=== PATIENT | male | born 1955 | race Caucasian/White ===

== ENCOUNTER 2017-11-10 10:34 | Emergency (ER) | payer BC, OTHER ==
[2017-11-10 10:50] VITALS: PULSE 80
--- NOTE | 2017-11-10 11:22 | ED ---
Skin/Abscess/FB HPI - General Source: patient, RN notes reviewed, old records reviewed Mode of arrival: ambulatory Limitations: no limitations <Deana Calhoun - Last Filed: 11/10/17 12:08> <Doug Kinney - Last Filed: 11/10/17 12:32> - General Chief complaint: Skin/Abscess/Foreign Body Stated complaint: Leg Pain Time Seen by Provider: 11/10/17 11:00 - History of Present Illness Initial comments: Patient is a 62-year-old male presents emergency Department chief complaint of swelling and erythema over the right medial thigh. Patient reports a diagnosis for one day. He is working on a deck and outside more frequently the past few days. No history of blood clots. Denies any lower external any pain or swelling. He reports his headache. No fevers or chills. Does not room getting bit by anything. (Deana Calhoun) - Related Data Previous Rx's Medication Instructions Recorded Cephalexin [Keflex] 500 mg PO Q6HR #40 cap 11/10/17 Sulfamethox-Tmp 800-160Mg [Bactrim 2 tab PO Q12HR #40 tab 11/10/17 DS 800-160 mg] Allergies Allergy/AdvReac Type Severity Reaction Status Date / Time No Known Allergies Allergy Verified 11/10/17 10:50 Review of Systems ROS Other: All systems not noted in ROS Statement are negative. <Deana Calhoun - Last Filed: 11/10/17 12:08> ROS Other: All systems not noted in ROS Statement are negative. <Doug Kinney - Last Filed: 11/10/17 12:32> ROS Statement: Those systems with pertinent positive or pertinent negative responses have been documented in the HPI. Past Medical History Past Medical History: Asthma, GERD/Reflux, Hyperlipidemia, Hypertension History of Any Multi-Drug Resistant Organisms: None Reported Additional Past Surgical History / Comment(s): mario alberto rectal abscess Past Psychological History: No Psychological Hx Reported Smoking Status: Never smoker Past Alcohol Use History: Occasional Past Drug Use History: None Reported <Deana Calhoun - Last Filed: 11/10/17 12:08> General Exam Limitations: no limitations General appearance: alert, in no apparent distress Head exam: Present: atraumatic, normocephalic, normal inspection Eye exam: Present: normal appearance, PERRL, EOMI. Absent: scleral icterus, conjunctival injection, periorbital swelling ENT exam: Present: normal exam, mucous membranes moist Neck exam: Present: normal inspection. Absent: tenderness, meningismus, lymphadenopathy Respiratory exam: Present: normal lung sounds bilaterally. Absent: respiratory distress, wheezes, rales, rhonchi, stridor Cardiovascular Exam: Present: regular rate, normal rhythm, normal heart sounds. Absent: systolic murmur, diastolic murmur, rubs, gallop, clicks GI/Abdominal exam: Present: soft, normal bowel sounds. Absent: distended, tenderness, guarding, rebound, rigid Extremities exam: Present: full ROM, normal capillary refill. Absent: normal inspection, tenderness, pedal edema, joint swelling, calf tenderness Right Hip exam: Present: normal inspection, full ROM Upper Leg exam: Present: full ROM, erythema (cellulitis measuring 12 cm by 18cm. ). Absent: normal inspection Knee exam: Present: normal inspection, full ROM Lower Leg exam: Present: normal inspection, full ROM Back exam: Present: normal inspection Neurological exam: Present: alert, oriented X3, CN II-XII intact Psychiatric exam: Present: normal affect, normal mood Skin exam: Present: warm, dry, intact, normal color. Absent: rash <Deana Calhoun - Last Filed: 11/10/17 12:08> <Doug Kinney - Last Filed: 11/10/17 12:32> - General Exam Comments Initial Comments: This is a 62-year-old male. Alert and oriented. No acute distress. (Deana Calhoun) Course <Deana Calhoun - Last Filed: 11/10/17 12:08> <Doug Kinney - Last Filed: 11/10/17 12:32> Vital Signs 11/10/17 11/10/17 10:43 12:22 Temperature 97.5 F L 98 F Pulse Rate 80 80 Respiratory 18 16 Rate Blood Pressure 164/84 154/81 O2 Sat by Pulse 97 99 Oximetry - Reevaluation(s) Reevaluation #1: 11/10/17 12:32 PA supervision I did personally do a [id number] evaluation the patient did discuss the findings with him and his . Patient does demonstrate evidence of a cellulitis to the right medial thigh. No evidence of open wound or foreign body seen at this time no lymphangitis. Ultrasound was negative for evidence of DVT. I do agree with the assessment and plan. (Doug Kinney) Medical Decision Making - Radiology Data Radiology results: report reviewed <Deana Calhoun - Last Filed: 11/10/17 12:08> <Doug Kinney - Last Filed: 11/10/17 12:32> - Medical Decision Making 62-year-old male presents emergency department today with chief complaint of right medial thigh redness. He notices for one day. He also reports that he was recently treated for. Rectal abscess a few weeks ago. At this time we did an ultrasound of his right lower extremity. Negative for DVT. Patient will be treated with Keflex and Bactrim. I discussed that if there is worsening redness or swelling to the site that he should return for possibly needing IV antibiotic. I did draw an area of redness around the site and if the redness gets worse in the next 24 hours and he will return. Patient understands treatment plan will comply. Return parameters were discussed. (Deana Calhoun) - Radiology Data Ultrasound was negative for DVT. (Deana Calhoun) Disposition Is patient prescribed a controlled substance at d/c from ED?: No When asked, does pt state using other controlled substances?: No If prescribed controlled substance>3 days was MAPS reviewed?: No If opioid is for acute pain is fill amount 7 days or less?: No If Rx opioid, was Start Talking consent form obtained?: No Time of Disposition: 12:12 <Deana Calhoun - Last Filed: 11/10/17 12:08> <Doug Kinney - Last Filed: 11/10/17 12:32> Clinical Impression: Cellulitis of right thigh Disposition: HOME SELF-CARE Condition: Good Instructions: Cellulitis (ED) Additional Instructions: Patient advised any Motrin Tylenol for pain. Patient must take the entire prescription of antibiotics. Follow up with her primary care physician in the next 1-2 days. If the area of redness or swelling worsens please return to emergency department for further evaluation possibly needing IV antibiotics. Prescriptions: Cephalexin [Keflex] 500 mg PO Q6HR #40 cap Sulfamethox-Tmp 800-160Mg [Bactrim DS 800-160 mg] 2 tab PO Q12HR #40 tab Referrals: Saeed Torres MD [Primary Care Provider] - 1-2 days
--- NOTE | 2017-11-10 11:51 | US ---
EXAMINATION TYPE: US venous doppler duplex LE RT DATE OF EXAM: 11/10/2017 11:05 AM COMPARISON: NONE CLINICAL HISTORY: Pain. SIDE PERFORMED: right TECHNIQUE: The lower extremity deep venous system is examined utilizing real time linear array sonog brenna with graded compression, doppler sonography and color-flow sonography. VESSELS IMAGED: External Iliac Vein (EIV) Common Femoral Vein Deep Femoral Vein Greater Saphenous Vein * Femoral Vein Popliteal Vein Small Saphenous Vein * Proximal Calf Veins (* superficial vessels) Right Leg: Negative for DVT IMPRESSION: Grayscale, color doppler, spectral doppler imaging performed of the deep veins of the lo wer extremities. There is normal flow, compressibility, vascular waveforms. No evidence to suggest deep venous thrombosis at or above the right knee.
[2017-11-10] MEDS ORDERED: SULFAMETH-TMP DS STARTER PACK 2 TAB BTL PO STA (12:06)
[2017-11-10] MEDS ORDERED: CEPHALEXIN 500MG STARTER PACK 4 CAP BTL PO STA (12:06)
[2017-11-10 12:22] VITALS: BP 154/81; RESP 16; TEMP 98
== END 2017-11-10 12:20 | disposition home or self-care (01) ==
LOC: EC 10:34
DX: L03.115 Cellulitis of right lower limb (principal); R51 Headache; M79.89 Other specified soft tissue disorders
CPT/HCPCS: 99284

== ENCOUNTER 2017-11-12 12:18 | Inpatient (IN) | payer BC ==
[2017-11-12] MEDS ORDERED: PIPERACILLIN-TAZOBACTAM 3.375 GM in DEXTROSE/WATER 1 50ML.BAG IVPB STA (12:52)
[2017-11-12] MEDS ORDERED: SODIUM CHLORIDE 0.9% 1,000 ML IV ONE (12:53)
--- NOTE | 2017-11-12 12:58 | ED ---
Skin/Abscess/FB HPI - General Source: patient, RN notes reviewed, old records reviewed Mode of arrival: ambulatory Limitations: no limitations <Deana Calhoun - Last Filed: 11/12/17 15:40> <Boy Miner - Last Filed: 11/16/17 14:59> - General Chief complaint: Skin/Abscess/Foreign Body Stated complaint: RT THIGH AND ANKLE CELLULITIS Time Seen by Provider: 11/12/17 12:28 - History of Present Illness Initial comments: This Patient is a pleasant 62-year-old male with chief complaint of right leg swelling and erythema over the thigh and ankle. He was seen by myself on 2 days ago and prescribed Keflex and Bactrim for cellulitis. He reports that the redness seems to continue to spread. He reports he's noticed some worsening swelling in his ankle. At that time he had an ultrasound which was completed for DVT and that was negative. Patient states that he's had no history of blood clots. He does report a recent history of perirectal abscess. He has been seen by his visiting nurse today for the last visit and she told him to come in for further evaluation. Patient has had no fevers or chills. Prior to the onset of the cellulitis he has been working outside on his deck and wonders if he could be associated with a scratch from working on his deck. (Deana Calhoun) - Related Data Home Medications Medication Instructions Recorded Confirmed Albuterol Inhaler [Ventolin Hfa 1 - 2 puff INHALATION RT-Q6H PRN 11/12/17 Inhaler] Montelukast [Singulair] 10 mg PO DAILY 11/12/17 11/12/17 Omeprazole 20 mg PO DAILY 11/12/17 11/12/17 Simvastatin [Zocor] 40 mg PO DAILY 11/12/17 11/12/17 Previous Rx's Medication Instructions Recorded Cephalexin [Keflex] 500 mg PO Q8HR #30 cap 11/16/17 Losartan Potassium 50 mg PO DAILY #0 11/16/17 Allergies Allergy/AdvReac Type Severity Reaction Status Date / Time No Known Allergies Allergy Verified 11/12/17 12:32 Review of Systems ROS Other: All systems not noted in ROS Statement are negative. <Deana Calhoun - Last Filed: 11/12/17 15:40> ROS Other: All systems not noted in ROS Statement are negative. <Boy Miner - Last Filed: 11/16/17 14:59> ROS Statement: Those systems with pertinent positive or pertinent negative responses have been documented in the HPI. Past Medical History Past Medical History: Asthma, GERD/Reflux, Hyperlipidemia, Hypertension History of Any Multi-Drug Resistant Organisms: None Reported Additional Past Surgical History / Comment(s): mario alberto rectal abscess Past Psychological History: No Psychological Hx Reported Smoking Status: Never smoker Past Alcohol Use History: Occasional Past Drug Use History: None Reported <LjDeana - Last Filed: 11/12/17 15:40> General Exam Limitations: no limitations General appearance: alert, in no apparent distress Head exam: Present: atraumatic, normocephalic, normal inspection Eye exam: Present: normal appearance, PERRL, EOMI. Absent: scleral icterus, conjunctival injection, periorbital swelling ENT exam: Present: normal exam, mucous membranes moist Neck exam: Present: normal inspection. Absent: tenderness, meningismus, lymphadenopathy Respiratory exam: Present: normal lung sounds bilaterally. Absent: respiratory distress, wheezes, rales, rhonchi, stridor Cardiovascular Exam: Present: regular rate, normal rhythm, normal heart sounds. Absent: systolic murmur, diastolic murmur, rubs, gallop, clicks GI/Abdominal exam: Present: soft, normal bowel sounds. Absent: distended, tenderness, guarding, rebound, rigid Extremities exam: Present: full ROM, normal capillary refill. Absent: normal inspection, tenderness, pedal edema, joint swelling, calf tenderness Right Upper Leg exam: Present: full ROM, erythema (She has very large erythema over the right medial thigh.). Absent: normal inspection Knee exam: Present: normal inspection, full ROM Lower Leg exam: Present: normal inspection, full ROM Ankle exam: Present: full ROM, swelling, erythema (over medial malleolus). Absent: normal inspection, tenderness Foot/Toe exam: Present: normal inspection, full ROM Neurovascular tendon exam: Present: no vascular compromise Gait: observed and normal Back exam: Present: normal inspection Neurological exam: Present: alert, oriented X3, CN II-XII intact Psychiatric exam: Present: normal affect, normal mood Skin exam: Present: warm, dry, intact, normal color. Absent: rash <Deana Calhoun - Last Filed: 11/12/17 15:40> <Boy Miner - Last Filed: 11/16/17 14:59> - General Exam Comments Initial Comments: This Patient is a well-appearing 62-year-old male. Alert and oriented. No acute distress. (Deana Calhoun) Vital Signs 11/12/17 11/12/17 11/12/17 12:23 14:36 17:03 Temperature 97.4 F L 97.7 F Pulse Rate 79 69 74 Respiratory 18 18 18 Rate Blood Pressure 177/78 168/77 152/81 O2 Sat by Pulse 97 97 98 Oximetry Medical Decision Making - Lab Data Result diagrams: 11/12/17 13:15 11/12/17 13:15 - Radiology Data Radiology results: report reviewed <Deana Calhoun - Last Filed: 11/12/17 15:40> - Lab Data Result diagrams: 11/13/17 05:31 11/16/17 08:06 <Boy Miner - Last Filed: 11/16/17 14:59> - Medical Decision Making This Patient is a 62-year-old male presents emergency department today with increasing area of redness over his right medial thigh. He was started on Keflex and Bactrim 2 days ago. He reports no fevers or any significant pain within the leg. He also reports that he's had some swelling and ecchymosis in the right ankle. At this time we completed an ultrasound which was negative for DVT. There does appear to be a small phlegmonous area within the leg. X- rays of the leg and ankle were obtained and show no evidence of free air. Lab work was obtained. White blood cell count was within normal limits. He does have an elevated BUN/creatinine. GFR 29. We have no previous kidney functions to compare from. I examined the Patient with Dr. Coreas. Recommended CT of the leg. We'll do CT of the leg without contrast. I did start the Patient on Zosyn and pharmacy to dose vancomycin. I will admit the Patient for failed outpatient treatment, and right thigh and ankle cellulitis. Blood cultures were obtained. CT is negative for any deep abscess or subcutaneous gas. (Deana Calhoun) Resident/PA attestation: I, Dr. Boy Miner, personally saw and examined the patient. I have reviewed and agree with the resident/PA findings, including all diagnostic interpretations and treatment plans as written unless otherwise stated. I was present for the falk portions of any procedures performed and inclusive time noted for any critical care statement. (Boy Miner) - Lab Data Lab Results 11/12/17 11/12/17 11/12/17 Range/Units 13:15 13:15 13:15 WBC 9.5 (3.8-10.6) k/uL RBC 4.28 L (4.30-5.90) m/uL Hgb 14.1 (13.0-17.5) gm/dL Hct 41.0 (39.0-53.0) % MCV 95.7 (80.0-100.0) fL MCH 32.8 (25.0-35.0) pg MCHC 34.3 (31.0-37.0) g/dL RDW 12.7 (11.5-15.5) % Plt Count 172 (150-450) k/uL Neutrophils % 76 % Lymphocytes % 10 % Monocytes % 7 % Eosinophils % 4 % Basophils % 0 % Neutrophils # 7.3 (1.3-7.7) k/uL Lymphocytes # 1.0 (1.0-4.8) k/uL Monocytes # 0.6 (0-1.0) k/uL Eosinophils # 0.4 (0-0.7) k/uL Basophils # 0.0 (0-0.2) k/uL ESR 2 (0-15) mm/hr Sodium 141 (137-145) mmol/L Potassium 4.7 (3.5-5.1) mmol/L Chloride 105 (98-107) mmol/L Carbon Dioxide 25 (22-30) mmol/L Anion Gap 11 mmol/L BUN 24 H (9-20) mg/dL Creatinine 2.30 H (0.66-1.25) mg/dL Est GFR (CKD-EPI)AfAm 34 (>60 ml/min/1.73 sqM) Est GFR (CKD-EPI)NonAf 29 (>60 ml/min/1.73 sqM) Glucose 112 H (74-99) mg/dL Plasma Lactic Acid Kenny 1.1 (0.7-2.0) mmol/L Calcium 8.8 (8.4-10.2) mg/dL Total Bilirubin 1.0 (0.2-1.3) mg/dL AST 41 (17-59) U/L ALT 58 (21-72) U/L Alkaline Phosphatase 56 (38-126) U/L C-Reactive Protein <5.0 (<10.0) mg/L Total Protein 6.6 (6.3-8.2) g/dL Albumin 4.3 (3.5-5.0) g/dL - Radiology Data X-ray: Prominent soft tissue swelling of the distal leg and ankle to a lesser extent of the medial thigh. Moderate severe Achilles tendinopathy. Correlate for any localizing symptoms to the Achilles tendon. If indicated MRI or ultrasound may be performed. Us: No evidence of DVT within the right lower extremity from the groin to the knee. Edematous taken subcutaneous medial right thigh with the same redness. Correlate for cellulitis. Heterogeneous 2.2 x 1.70 focal lesion within the could represent a local phlegmonous change. A 1.5 cm WELL-defined cystic area behind the knee which could represent small cyst though no discrete communication with the underlying knee joint is seen. Short interval follow up recommended for both findigns. CT: Subcutaneous edema greater distally along the leg correlate for cellulitis. No soft tissue gas or edema along the muscular fascial planes to suggest a deeper aggressive soft tissue infection. 2.6 x 1.2 cm irregular density in the medial thighs subcutaneous fat suggestive inflammation or possible phlegmon. No abscess. Couple punctate 2 mm densities anteromedial mid leg which could represent tiny phleboliths or retained foreign body material. No acute osseous abnormality seen. Mildly enlarged right inguinal lymph node at 1.6 cm likely reactive. (Deana Calhoun) Disposition Is patient prescribed a controlled substance at d/c from ED?: No When asked, does pt state using other controlled substances?: No If prescribed controlled substance>3 days was MAPS reviewed?: No If opioid is for acute pain is fill amount 7 days or less?: No If Rx opioid, was Start Talking consent form obtained?: No Time of Disposition: 15:42 <Deana Calhoun - Last Filed: 11/12/17 15:40> <Boy Miner - Last Filed: 11/16/17 14:59> Clinical Impression: Cellulitis of right thigh, Failure of outpatient treatment, JAYNA (acute kidney injury), Cellulitis of right ankle Disposition: ADMITTED IP TO THIS HOSP Condition: Good
[2017-11-12] MEDS: SODIUM CHLORIDE 0.9% 1,000 ML IV SCH (13:14)
[2017-11-12 13:42] LABS: Basophils % (A) 0 %; Eosinophils # (A) 0.4 k/uL (0-0.7); Eosinophils % (A) 4 %; HGB 14.1 gm/dL (13.0-17.5); Lymphocytes % (A) 10 %; MCH 32.8 pg (25.0-35.0); MCHC 34.3 g/dL (31.0-37.0); MCV 95.7 fL (80.0-100.0); Mean Platelet Volume 7.2; Monocytes # (A) 0.6 k/uL (0-1.0); Monocytes % (A) 7 %; Neutrophils # (A) 7.3 k/uL (1.3-7.7); Neutrophils % (A) 76 %; Platelet Count 172 k/uL (150-450); RBC 4.28 m/uL (4.30-5.90); RDW 12.7 % (11.5-15.5); WBC 9.5 k/uL (3.8-10.6)
--- NOTE | 2017-11-12 13:42 | XR ---
EXAMINATION TYPE: XR femur 2 views RT, XR ankle complete 3 views RT DATE OF EXAM: 11/12/2017 COMPARISON: NONE HISTORY: 62-year-old male ankle and thigh swelling and erythema for 2 days FINDINGS: Femur: Mild degenerative change of the right hip. No effacement of the intramuscular fat planes within the t high. No soft tissue gas seen. Mild reticulations within the medial subcutaneous fat. No acute fractu re. No periostitis or osteolysis. No knee joint effusion. Tibia/fibula: Prominent reticulations throughout the subcutaneous adipose tissues. There may be severe thickening o f the Achilles tendon at the 1.9 cm AP. Vascular calcifications suggest underlying diabetes and chron ic kidney disease. Small plantar calcaneal spur. Ankle mortise is congruent. No acute fracture, sublu xation, or dislocation. No periostitis or osteolysis. Talar dome is intact. IMPRESSION: 1. Prominent soft tissue swelling about the distal leg and ankle and to a lesser extent along the med ial thigh. No acute osseous abnormality seen. 2. Possible moderate to severe Achilles tendinopathy. Correlate for any localizing symptoms to the Ac hilles tendon. If indicated, ultrasound or MRI can be performed.
[2017-11-12 13:49] LABS: ALT 58 U/L (21-72); AST 41 U/L (17-59); Albumin 4.3 g/dL (3.5-5.0); Alkaline Phosphatase 56 U/L (38-126); Anion Gap 11 mmol/L; Blood Urea Nitrogen 24 mg/dL (9-20); Calcium 8.8 mg/dL (8.4-10.2); Carbon Dioxide 25 mmol/L (22-30); Chloride 105 mmol/L (98-107); Glucose 112 mg/dL (74-99); Potassium 4.7 mmol/L (3.5-5.1); Sodium 141 mmol/L (137-145); Total Protein 6.6 g/dL (6.3-8.2)
[2017-11-12 14:03] LABS: C Reactive Protein <5.0 mg/L (<10.0)
--- NOTE | 2017-11-12 14:13 | US ---
EXAMINATION TYPE: US venous doppler duplex LE RT DATE OF EXAM: 11/12/2017 1:57 PM COMPARISON: US 11/10/2017 CLINICAL HISTORY: 62-year-old male was diagnosed with cellulitis on 11/10/2017, worsening symptoms- red ness and swelling right leg. SIDE PERFORMED: Right TECHNIQUE: The lower extremity deep venous system is examined utilizing real time linear array sonog brenna with graded compression, doppler sonography and color-flow sonography. FINDINGS: VESSELS IMAGED: External Iliac Vein (EIV) Common Femoral Vein Deep Femoral Vein Greater Saphenous Vein * Femoral Vein Popliteal Vein Small Saphenous Vein * (* superficial vessels) Right Leg: Appears negative for DVT. Within the right popliteal fossa, there is a cystic area visualized measuring 1.5 x 1.2 x 1.3 cm. No clear extension into the underlying knee joint. Short interval follow-up recommended. Within the right medial thigh, at the area of the patient's redness, there is a heterogeneous hypoec hoic area visualized centered in the thickened and edematous subcutaneous adipose tissues measuring 2 .2 x 0.6 x 0.7 cm . IMPRESSION: 1. No evidence for DVT within the right lower extremity imaged from the groin to the knee. 2. Edematous and thickened subcutaneous tissues medial right thigh at the site of redness. Correlate for cellulitis. There is a heterogeneous 2.2 x 0.7 cm focal lesion within that could represent focal phlegmonous change. 3. A 1.5 cm well-defined cystic area behind the knee could represent a small 's cyst though no d iscrete communication with the underlying knee joint is seen. 4. Short interval follow-up ultrasound is recommended for both of these findings.
[2017-11-12] MEDS ORDERED: VANCOMYCIN IV PER PHARMACY 1 EACH MISC MISCELLANE PRN (14:30)
[2017-11-12 14:36] LABS: Erythrocyte Sedimentation Rate 2 mm/hr (0-15)
[2017-11-12] MEDS ORDERED: VANCOMYCIN 2,000 MG in SODIUM CHLORIDE 0.9% 500 ML IVPB ONE (14:45)
--- NOTE | 2017-11-12 15:35 | CT ---
EXAMINATION TYPE: CT lower extremity RT wo con DATE OF EXAM: 11/12/2017 COMPARISON: Correlation ultrasound and radiographs 11/12/2017 HISTORY: 62-year-old male with right medial thigh and ankle pain, redness and swelling. TECHNIQUE: Contiguous axial scanning of the right lower extremity without IV contrast. Coronal and sa gittal reconstructions performed. 3-D reconstructions generated on a dedicated independent workstatio n. CT DLP: 1794.8 mGycm Automated exposure control for dose reduction was used. FINDINGS: There is fatty atrophy of the gluteus minimus muscle belly that could reflect chronic tear. Prominent right inguinal lymph nodes measuring 1.6 cm short axis could be reactive. There is no soft tissue air. No edema tracking along the deeper fascial planes. Diffuse subcutaneous fat reticulation throughout the thigh, most extensively medially. Similar conflu ent edema is present along the superficial fascia anteromedial distal thigh. Within the medial thigh subcutaneous adipose tissues, there is a 2.6 x 1.2 cm irregular density corre sponding to the ultrasound findings. More extensive subcutaneous fat reticulation around the leg especially distally toward the ankle. No abnormal fluid collection. Along the anteromedial mid leg, there are couple punctate 2 mm densities that could represent phlebol iths or tiny foreign body material, refer to axial image 256 and coronal image 35. Prostatic calcifications are present throughout. Scattered areas of muscle atrophy are noted. No knee joint effusion. No acute fracture or dislocation. There is moderate degenerative change at th e hip. IMPRESSION: 1. SUBCUTANEOUS EDEMA GREATER DISTALLY ALONG THE LEG. CORRELATE FOR CELLULITIS. THERE IS NO SOFT TISS UE GAS OR EDEMA ALONG THE MUSCULAR FASCIAL PLANES TO SUGGEST A DEEPER, AGGRESSIVE SOFT TISSUE INFECTI ON. 2. A 2.6 X 1.2 CM IRREGULAR DENSITY IN THE MEDIAL THIGH SUBCUTANEOUS FAT SUGGESTS NONSPECIFIC INFLAMM ATION, POSSIBLE FOCAL PHLEGMON. NO ABSCESS. 3. A COUPLE PUNCTATE 2 MM DENSITIES ANTEROMEDIAL MID LEG COULD REPRESENT TINY PHLEBOLITHS OR RETAINED FOREIGN BODY MATERIAL (axial image 256 and coronal image 35). 4. NO ACUTE OSSEOUS ABNORMALITY SEEN. 5. MILDLY ENLARGED RIGHT INGUINAL LYMPH NODE AT 1.6 CM LIKELY REACTIVE.
[2017-11-12] MEDS ORDERED: IBUPROFEN 400 MG TAB PO PRN (15:46)
[2017-11-12] MEDS ORDERED: ONDANSETRON 4 MG/2 ML VIAL IVP PRN (15:46)
[2017-11-12] MEDS ORDERED: oxyCODONE-APAP 5-325MG 1 EACH TAB PO PRN (15:46)
[2017-11-12] MEDS ORDERED: LOPERAMIDE 2 MG CAP PO PRN (15:46)
[2017-11-12] MEDS ORDERED: ACETAMINOPHEN TAB 325 MG TAB PO PRN (15:46)
[2017-11-12] MEDS ORDERED: BISACODYL 5 MG TABLET.DR PO PRN (15:46)
[2017-11-12] MEDS ORDERED: NALOXONE 0.4 MG/ML 1 ML VIAL IV PRN (15:46)
[2017-11-12] MEDS ORDERED: KETOROLAC 30 MG/ML 1 ML VIAL IVP PRN (15:46)
[2017-11-13] MEDS: SODIUM CHLORIDE 0.9% 1,000 ML IV SCH ×3 (00:27→19:49)
[2017-11-13 06:01] LABS: Basophils # (A) 0.1 k/uL (0-0.2); Basophils % (A) 1 %; Eosinophils # (A) 0.5 k/uL (0-0.7); Eosinophils % (A) 7 %; HCT 40.6 % (39.0-53.0); HGB 13.5 gm/dL (13.0-17.5); Lymphocytes # (A) 1.2 k/uL (1.0-4.8); Lymphocytes % (A) 16 %; MCH 32.5 pg (25.0-35.0); MCHC 33.1 g/dL (31.0-37.0); MCV 97.9 fL (80.0-100.0); Mean Platelet Volume 7.2; Monocytes # (A) 0.6 k/uL (0-1.0); Monocytes % (A) 8 %; Neutrophils # (A) 5.1 k/uL (1.3-7.7); Neutrophils % (A) 66 %; Platelet Count 168 k/uL (150-450); RBC 4.15 m/uL (4.30-5.90); RDW 12.8 % (11.5-15.5); WBC 7.7 k/uL (3.8-10.6)
[2017-11-13 06:10] LABS: Calcium 8.4 mg/dL (8.4-10.2); Potassium 5.6 mmol/L (3.5-5.1)
[2017-11-13] MEDS: VANCOMYCIN 1,750 MG in SODIUM CHLORIDE 0.9% 500 ML IVPB SCH (09:00)
[2017-11-13] MEDS ORDERED: VANCOMYCIN 1,750 MG in SODIUM CHLORIDE 0.9% 250 ML IVPB SCH (09:00)
[2017-11-13] MEDS ORDERED: PANTOPRAZOLE 40 MG/10 ML VIAL IV SCH (09:00)
[2017-11-13] MEDS ORDERED: PANTOPRAZOLE 40 MG TABLET PO SCH (13:00)
[2017-11-13] MEDS: LOSARTAN 50 MG TAB PO SCH (15:07)
[2017-11-13] MEDS: ATORVASTATIN 20 MG TAB PO SCH (15:07)
[2017-11-13] MEDS: PIPERACILLIN-TAZOBACTAM 3.375 GM in DEXTROSE/WATER 1 50ML.BAG IVPB SCH ×2 (15:08→23:16)
--- NOTE | 2017-11-13 15:57 | P.HPIM ---
History of Present Illness H&P Date: 11/13/17 This is a 62 years old male patient of Dr. Torres with past medical history of asthma, hyperlipidemia, hypertension, recent perirectal abscess treated by Dr. Wilhelm currently getting visiting nurses at home with last packing of the rectum done last Wednesday with no further plans of packing due to good recovery. Patient developed right lower extremity swelling and redness 2 days ago and was seen in the ER where he was discharged with Keflex and Bactrim. Since the swelling around the thigh region continued to worsen despite the antibiotic patient decided to come to the ER on suggestion of the visiting nurses. Labs done in the ER suggestive of WBC 9.5, hemoglobin 14.1, creatinine 2.3, BUN 24, glucose 112 lactic acid 1.1 normal LFTs, normal C- reactive protein. Ultrasound lower extremity was negative for DVT CT lower extremity gratis distally along the leg concerning for cellulitis but no soft tissue gas or edema was seen to suggest deeper infection. Patient was found to have a 2.6 and 1.1 is regular density in the medial thigh subcutaneous fat which could suggest a possible focal phlegmon though negative for any abscess patient also has a couple punctate 2 mm densities anterior medial mid leg which could represent tiny phlebolith or retained foreign body material mildly enlarged lymph node was also seen likely reactive. Infectious disease consult placed patient will be continued on vancomycin and Zosyn as improvement in swelling noted. We will hold on surgery consult as patient does not have any acute abscesses that that can be drained Review of Systems Constitutional: Denies chills, Denies fever, Denies lethargy, Denies malaise, Denies poor appetite, Denies weakness, Denies weight loss Eyes: denies decreased vision, denies diplopia, denies discharge, denies pain Ears: deny: decreased hearing Ears, nose, mouth and throat: Denies dental pain, Denies headache, Denies nasal discharge, Denies nose pain Cardiovascular: Denies chest pain, Denies decreased exercise tolerance, Denies edema, Denies high blood pressure, Denies irregular heart beat, Denies palpitations, Denies paroxysmal nocturnal dyspnea, Denies rapid heart beat, Denies shortness of breath Respiratory: Denies congestion, Denies cough, Denies cough with sputum, Denies dyspnea, Denies home oxygen, Denies wheezing Gastrointestinal: Denies abdominal pain, Denies change in bowel habits, Denies coffee ground emesis, Denies early satiety, Denies excessive gas, Denies heartburn, Denies hematemesis, Denies hematochezia, Denies loss of appetite, Denies nausea, Denies vomiting Genitourinary: Denies dysuria, Denies flank pain, Denies kidney stones, Denies menorrhagia, Denies urgency, Denies urinary frequency Musculoskeletal: Denies gait dysfunction, Denies limitation of motion, Denies morning stiffness, Denies muscle cramps Integumentary: Endorses rash, Denies wounds, Denies brittle nails, Denies change in hair/nails, Denies darkening of skin Neurological: Denies balance difficulties, Denies change in speech, Denies double vision, Denies gait dysfunction, Denies loss of vision, Denies motor disturbance, Denies numbness, Denies paralysis, Denies paresthesias, Denies seizures Psychiatric: Denies anxiety, Denies depression Endocrine: Denies excessive sweating, Denies excessive thirst, Denies high blood sugars, Denies palpitations Hematologic/Lymphatic: Denies easy bruising, Denies lymphadenopathy Past Medical History Past Medical History: Asthma, GERD/Reflux, Hyperlipidemia, Hypertension History of Any Multi-Drug Resistant Organisms: None Reported Additional Past Surgical History / Comment(s): mario alberto rectal abscess sx Past Psychological History: No Psychological Hx Reported Smoking Status: Never smoker Past Alcohol Use History: Occasional Past Drug Use History: None Reported Medications and Allergies Home Medications Medication Instructions Recorded Confirmed Type Cephalexin [Keflex] 500 mg PO Q6HR #40 cap 11/10/17 11/12/17 Rx Sulfamethox-Tmp 800-160Mg [Bactrim 2 tab PO Q12HR #40 tab 11/10/17 11/12/17 Rx DS 800-160 mg] Albuterol Inhaler [Ventolin Hfa 1 - 2 puff INHALATION RT-Q6H PRN 11/12/17 History Inhaler] Losartan Potassium 100 mg PO DAILY 11/12/17 11/12/17 History Montelukast [Singulair] 10 mg PO DAILY 11/12/17 11/12/17 History Omeprazole 20 mg PO DAILY 11/12/17 11/12/17 History Simvastatin [Zocor] 40 mg PO DAILY 11/12/17 11/12/17 History Allergies Allergy/AdvReac Type Severity Reaction Status Date / Time No Known Allergies Allergy Verified 11/12/17 12:32 Physical Exam Vitals: Vital Signs Temp Pulse Pulse Resp BP BP Pulse Ox 11/13/17 15:00 97.7 F 82 16 155/75 96 11/13/17 06:10 96.8 F L 79 16 141/85 96 11/12/17 22:50 97.6 F 75 16 142/80 96 11/12/17 17:03 97.7 F 74 18 152/81 98 Intake and Output 11/13/17 11/13/17 11/13/17 06:59 14:59 22:59 Intake Total 850 Balance 850 Intake: Intake, IV Titration 850 Amount Piperacillin-Tazobactam 3 50 .375 gm In Dextrose/Water 1 50ml.bag @ 12.5 mls/hr IVPB Q8HR [facility] Rx#: [id number] Sodium Chloride 0.9% 1, 800 000 ml @ 100 mls/hr IV . Q10H [facility] Rx#:[id number] Other: # Voids 1 - Constitutional General appearance: cooperative, no acute distress, obese - EENT Eyes: anicteric sclerae, PERRLA, normal appearance ENT: hearing grossly normal - Neck Neck: no lymphadenopathy, normal ROM, no other, no rigidity, no stridor, no thyromegaly - Respiratory Respiratory: bilateral: CTA, negative: diminished, dullness, rales, rhonchi - Cardiovascular Rhythm: regular Heart sounds: normal: S1, S2 Abnormal Heart Sounds: no systolic murmur, no diastolic murmur, no rub, no S3 Gallop, no S4 Gallop, no click, no other - Gastrointestinal General gastrointestinal: normal bowel sounds, soft - Integumentary Integumentary: Circumferential inflammation with no overlying warmth seen around the ankle with 1+ lower extremity edema. Also prominent skin lesion seen on the medial side of the thigh with 1 cm ulcer nondraining. - Neurologic Neurologic: CNII-XII intact - Musculoskeletal Musculoskeletal: gait normal, strength equal bilaterally - Psychiatric Psychiatric: A&O x's 3, appropriate affect Results CBC & Chem 7: 11/13/17 05:31 11/13/17 05:31 Labs: Abnormal Lab Results - Last 24 Hours (Table) 11/13/17 11/13/17 Range/Units 05:31 05:31 RBC 4.15 L (4.30-5.90) m/uL Potassium 5.6 H (3.5-5.1) mmol/L Creatinine 1.90 H (0.66-1.25) mg/dL Microbiology - Last 24 Hours (Table) 11/12/17 13:15 Blood Culture - Preliminary Blood No Growth after 24 hours 11/12/17 17:50 Gram Stain - Preliminary Leg - Right Wound Culture - Preliminary 11/12/17 17:50 Anaerobic Culture - Preliminary Leg - Right Thrombosis Risk Factor Assmnt - DVT/VTE Prophylaxis DVT/VTE Prophylaxis: Pharmacologic Prophylaxis ordered - Choose All That Apply Each Risk Factor Represents 2 Points: Age 61-74 years Thrombosis Risk Factor Assessment Total Risk Factor Score: 2 Thrombosis Risk Factor Assessment Level: Low Risk Assessment and Plan Plan: #1 acute cellulitis with lymphangitis failed outpatient treatment. CT leg suggestive of cellulitis ruled out necrotizing fasciitis. Continue with vancomycin pharmacy to dose with Zosyn. Infectious disease consulted for further recommendation as outpatient on discharge. Negative for DVT on the lower extremity ultrasound #2 hyperlipidemia continue atorvastatin 20 mg patient on simvastatin 40 mg daily #3 asthma continue Singulair 10 mg daily #4 acute kidney injury likely secondary to acute tubular necrosis from Bactrim. Creatinine improved since yesterday continue to monitor for continue IV fluids at 100 mL/h #5 GI prophylaxis with 20 mg of omeprazole #6 DVT prophylaxis with heparin every 12 #7 CODE STATUS full code
[2017-11-13] MEDS ORDERED: MONTELUKAST 10 MG TAB PO STA (19:47)
--- NOTE | 2017-11-13 20:18 | P.GSCN ---
History of Present Illness Consult date: 11/13/17 History of present illness: 62yo M presents with swelling and redness of his right medial thigh. He states that over the past month he has had recurrent abscess formation. He was treated recently for a perirectal abscess with an incision and drainage and did need some outpatient antibiotics. He was evaluated by a wound care nurse at home for this issue. Over the past few days, he noticed swelling of his inner right thigh. This began to grow red and was warm to the touch. He tried outpatient antibiotics but this area continued to worsen. This is why he presented to the hospital. ER workup did include US and CT of his RLE. Ultrasound lower extremity was negative for DVT. CT lower extremity was concerning for cellulitis and possible phlegmon, but no anscess formation. ID is following with antibiotic recommendations. The patient denied any febrile episodes, chest pain or SOB. Review of Systems All systems: negative Past Medical History Past Medical History: Asthma, GERD/Reflux, Hyperlipidemia, Hypertension History of Any Multi-Drug Resistant Organisms: None Reported Additional Past Surgical History / Comment(s): mario alberto rectal abscess sx Past Psychological History: No Psychological Hx Reported Smoking Status: Never smoker Past Alcohol Use History: Occasional Past Drug Use History: None Reported Medications and Allergies Home Medications Medication Instructions Recorded Confirmed Type Cephalexin [Keflex] 500 mg PO Q6HR #40 cap 11/10/17 11/12/17 Rx Sulfamethox-Tmp 800-160Mg [Bactrim 2 tab PO Q12HR #40 tab 11/10/17 11/12/17 Rx DS 800-160 mg] Albuterol Inhaler [Ventolin Hfa 1 - 2 puff INHALATION RT-Q6H PRN 11/12/17 History Inhaler] Losartan Potassium 100 mg PO DAILY 11/12/17 11/12/17 History Montelukast [Singulair] 10 mg PO DAILY 11/12/17 11/12/17 History Omeprazole 20 mg PO DAILY 11/12/17 11/12/17 History Simvastatin [Zocor] 40 mg PO DAILY 11/12/17 11/12/17 History Allergies Allergy/AdvReac Type Severity Reaction Status Date / Time No Known Allergies Allergy Verified 11/12/17 12:32 Surgical - Exam Osteopathic Statement: *. No significant issues noted on an osteopathic structural exam other than those noted in the History and Physical/Consult. Vital Signs Temp Pulse Resp BP Pulse Ox 97.4 F L 79 18 177/78 97 11/12/17 12:23 11/12/17 12:23 11/12/17 12:23 11/12/17 12:23 11/12/17 12:23 - General well nourished, no distress - Eyes normal ocular movement - ENT normal mucosa, no hearing loss - Respiratory normal respiratory effort - Abdomen soft, nontender, nondistended, no rebound, no guarding - Integumentary right medial thigh with erythema, positive blanching of the skin and some palpable induration, no obvious fluctuant area - Neurologic normal coordination - Psychiatric oriented to time, oriented to person, oriented to place, speech is normal Results - Labs 11/13/17 05:31 11/13/17 05:31 Abnormal Lab Results - Last 24 Hours (Table) 11/13/17 11/13/17 Range/Units 05:31 05:31 RBC 4.15 L (4.30-5.90) m/uL Potassium 5.6 H (3.5-5.1) mmol/L Creatinine 1.90 H (0.66-1.25) mg/dL Microbiology - Last 24 Hours (Table) 11/12/17 13:15 Blood Culture - Preliminary Blood No Growth after 24 hours 11/12/17 17:50 Gram Stain - Preliminary Leg - Right Wound Culture - Preliminary 11/12/17 17:50 Anaerobic Culture - Preliminary Leg - Right Diabetes panel 11/13/17 Range/Units 05:31 Sodium 144 (137-145) mmol/L Potassium 5.6 H (3.5-5.1) mmol/L Chloride 106 (98-107) mmol/L Carbon Dioxide 28 (22-30) mmol/L BUN 20 (9-20) mg/dL Creatinine 1.90 H (0.66-1.25) mg/dL Glucose 86 (74-99) mg/dL Calcium 8.4 (8.4-10.2) mg/dL Calcium panel 11/13/17 Range/Units 05:31 Calcium 8.4 (8.4-10.2) mg/dL Pituitary panel 11/13/17 Range/Units 05:31 Sodium 144 (137-145) mmol/L Potassium 5.6 H (3.5-5.1) mmol/L Chloride 106 (98-107) mmol/L Carbon Dioxide 28 (22-30) mmol/L BUN 20 (9-20) mg/dL Creatinine 1.90 H (0.66-1.25) mg/dL Glucose 86 (74-99) mg/dL Calcium 8.4 (8.4-10.2) mg/dL Adrenal panel 11/13/17 Range/Units 05:31 Sodium 144 (137-145) mmol/L Potassium 5.6 H (3.5-5.1) mmol/L Chloride 106 (98-107) mmol/L Carbon Dioxide 28 (22-30) mmol/L BUN 20 (9-20) mg/dL Creatinine 1.90 H (0.66-1.25) mg/dL Glucose 86 (74-99) mg/dL Calcium 8.4 (8.4-10.2) mg/dL - Imaging Additional studies: CT of the RLE was reviewed, possible phlegmon formation with no obvious abscess noted Assessment and Plan (1) Cellulitis of right thigh Narrative/Plan: - Continue antibiotics per ID recommendations - Currently there is no obvious fluctuant area and no CT evidence of abscess, I will continue to monitor his progress and if any fluctuant area becomes noticeable, I will do an incision and drainage of the site Thank you for this consultation, I look forward in providing in this patient's care Current Visit: Yes Status: Acute Code(s): L03.115 - CELLULITIS OF RIGHT LOWER LIMB SNOMED Code(s): 69528446
[2017-11-13] MEDS: HEPARIN SODIUM,PORCINE 5,000 UNIT/ML 1 ML VIAL SQ SCH (21:16)
--- NOTE | 2017-11-14 04:37 | CONS ---
CONSULTATION DATE OF SERVICE: 11/13/2017. REASON FOR CONSULTATION: Right mid thigh and leg cellulitis, possible abscess. HISTORY OF PRESENT ILLNESS: The patient is a 62-year-old male who recently did have a perirectal abscess requiring drainage followed by local care. The patient says that as that area has healed up, he subsequently started noticed having pain, swelling, redness to the right medial thigh area for which the patient that has been going on for about a week, has been seen in the outpatient setting and has been treated with antibiotic. However, the patient did not have any improvement. The area and the thigh became more swollen and red. Pain is of a dull, aching pain, 3 to 4/10, and no radiation and also had some swelling and redness to the right medial leg area. The patient did have some chills but denies any high-grade fever. With these symptoms, patient presented to the [facility] ER. Patient on arrival to the ER the patient has been afebrile and his white count was normal. The patient did have a lower extremity Doppler that was negative for DVT. A CT has been suggestive of soft tissue swelling but no formation noted for abscess. The patient has been treated with vancomycin and Zosyn. Infectious Disease was consulted for further recommendation regarding antibiotic therapy. REVIEW OF SYSTEMS: CONSTITUTIONAL: Positive for weakness and chills. Eyes: No complaint. ENT no complaint. Respiratory no complaint. Cardiovascular no complaint. Genitourinary no complaint. Gastrointestinal: No complaint. Endocrine: No complaint. Musculoskeletal as per HPI. Integumentary as per HPI. Psychological no complaint. Endocrine no complaint. Neurologic no complaint. PAST MEDICAL HISTORY: Significant for asthma and esophageal reflux disease, hypertension, hyperlipidemia, and perirectal abscess. PAST SURGICAL HISTORY: Drainage of the perirectal abscess. SOCIAL HISTORY: Denies smoking. Occasionally drinks. No drug use. FAMILY HISTORY: No pertinent findings noticed. ALLERGIES: No known drug allergies. MEDICATIONS: Include the patient is currently on Tylenol, Lipitor, Dulcolax, heparin, Motrin, Imodium, Cozaar, Singulair, Narcan, Zofran, Percocet, Protonix, Zosyn and vancomycin pharmacy to dose. EXAMINATION: Blood pressure is 155/75 with a pulse of 82, temperature 98.7. He is 93% on room air. General description is a middle-aged male lying in bed in no distress. No tachypnea or accessory muscles of respiration use. HEENT: Shows no pallor or scleral icterus. Oral mucosa membranes are dry. No significant erythema or thrush. Neck trachea central. No thyromegaly. Lungs unlabored breathing. Clear to auscultation anteriorly. No wheeze or crackles. Heart S1, S2. Regular rate and rhythm. ABDOMEN: Soft. No tenderness. No guarding or rigidity. Extremities: No edema of the feet. Examination of right mid thigh there is a slight area of swelling, redness, minimally indurated, on the right lower leg area. No open area. No drainage. Neurological: Patient awake, alert, oriented x3. Mood and affect normal. LABS: Hemoglobin of 13.5, white count 7.7 with a BUN of 20, creatinine 1.90. Electrolytes have been normal. DIAGNOSTIC IMPRESSION AND PLAN: Patient with right medial thigh cellulitis, consider possible abscess, also with cellulitis of the right leg area in a patient who has been recently treated for a perirectal abscess. Concern for possible gram-positive or gram-negative infection not entirely excluded. PLAN: 1. We will recommend general surgery consultation for possibility of drainage of the abscess and cultures that should guide further antibiotic therapy. 2. Vancomycin pharmacy to dose, watching his kidney function closely provide adequate coverage. 3. Depending upon his clinical response as well as cultures to further adjust medication if needed. Thank you for this consultation. Will follow this patient along with you. MMODL / IJN: [id number] /
[2017-11-14] MEDS: SODIUM CHLORIDE 0.9% 1,000 ML IV SCH ×2 (06:06→16:36)
--- NOTE | 2017-11-14 08:43 | P.PN ---
Subjective Progress Note Date: 11/14/17 Patient seen and examined at bedside. No acute events overnight. States pain is improving in his right lower extremity. Denies any drainage from his right lower extremity. Objective - Vital Signs Vital signs: Vital Signs Temp 98.6 F 11/14/17 06:00 Pulse 72 11/14/17 06:00 Resp 16 11/14/17 06:00 BP 161/79 11/14/17 06:00 Pulse Ox 97 11/14/17 06:00 Intake & Output 11/13/17 11/14/17 11/14/17 18:59 06:59 18:59 Intake Total 850 Output Total 2 Balance 850 -2 Intake: Intake, IV Titration 850 Amount Piperacillin-Tazobactam 3 50 .375 gm In Dextrose/Water 1 50ml.bag @ 12.5 mls/hr IVPB Q8HR [facility] Rx#: [id number] Sodium Chloride 0.9% 1, 800 000 ml @ 100 mls/hr IV . Q10H [facility] Rx#:[id number] Output: Urine 2 Other: Voiding Method Toilet # Voids 1 - Constitutional General appearance: Present: cooperative, no acute distress - Respiratory Details: No difficulty with respiration - Gastrointestinal Gastrointestinal Comment(s): Soft, nontender, nondistended, no rebound, no guarding - Integumentary Integumentary Comment(s): Right lower extremity site of cellulitis has improved with surrounding erythema , no palpable fluctuance, indurated site is still present and unchanged, blanching is still present - Psychiatric Psychiatric: Present: A&O x's 3, appropriate affect - Labs CBC & Chem 7: 11/13/17 05:31 11/13/17 05:31 Labs: Microbiology - Last 24 Hours (Table) 11/12/17 13:15 Blood Culture - Preliminary Blood No Growth after 24 hours Assessment and Plan (1) Cellulitis of right thigh Narrative/Plan: - Continue antibiotics per ID recommendations - There seems to be improvement in the cellulitis site with improved erythema. There still is no palpable fluctuance. There is an area of induration that is unchanged. We will continue to monitor this. If fluctuance does develop, I will perform an I&D at that time. Currently we will manage this with antibiotics Current Visit: Yes Status: Acute Code(s): L03.115 - CELLULITIS OF RIGHT LOWER LIMB SNOMED Code(s): 60557643
[2017-11-14 08:59] LABS: Calcium 8.9 mg/dL (8.4-10.2); Potassium 5.3 mmol/L (3.5-5.1)
[2017-11-14] MEDS: HEPARIN SODIUM,PORCINE 5,000 UNIT/ML 1 ML VIAL SQ SCH ×2 (09:59→21:29)
[2017-11-14] MEDS: MONTELUKAST 10 MG TAB PO SCH (09:59)
[2017-11-14] MEDS: LOSARTAN 50 MG TAB PO SCH (09:59)
[2017-11-14] MEDS: PANTOPRAZOLE 40 MG TABLET PO SCH (09:59)
[2017-11-14] MEDS: PIPERACILLIN-TAZOBACTAM 3.375 GM in DEXTROSE/WATER 1 50ML.BAG IVPB SCH ×3 (09:59→23:23)
[2017-11-14] MEDS: ATORVASTATIN 20 MG TAB PO SCH (09:59)
[2017-11-14] MEDS: VANCOMYCIN 1,750 MG in SODIUM CHLORIDE 0.9% 500 ML IVPB SCH (09:59)
[2017-11-14] MEDS ORDERED: SODIUM POLYSTYRENE SULFONATE 15 GM/60 ML BOTTLE PO STA (13:18)
--- NOTE | 2017-11-14 16:00 | P.PN ---
Subjective Progress Note Date: 11/14/17 This is a 62 years old male patient of Dr. Torres with past medical history of asthma, hyperlipidemia, hypertension, recent perirectal abscess treated by Dr. Wilhelm currently getting visiting nurses at home with last packing of the rectum done last Wednesday with no further plans of packing due to good recovery. Patient developed right lower extremity swelling and redness 2 days ago and was seen in the ER where he was discharged with Keflex and Bactrim. Since the swelling around the thigh region continued to worsen despite the antibiotic patient decided to come to the ER on suggestion of the visiting nurses. Labs done in the ER suggestive of WBC 9.5, hemoglobin 14.1, creatinine 2.3, BUN 24, glucose 112 lactic acid 1.1 normal LFTs, normal C- reactive protein. Ultrasound lower extremity was negative for DVT CT lower extremity gratis distally along the leg concerning for cellulitis but no soft tissue gas or edema was seen to suggest deeper infection. Patient was found to have a 2.6 and 1.1 is regular density in the medial thigh subcutaneous fat which could suggest a possible focal phlegmon though negative for any abscess patient also has a couple punctate 2 mm densities anterior medial mid leg which could represent tiny phlebolith or retained foreign body material mildly enlarged lymph node was also seen likely reactive. Infectious disease consult placed patient will be continued on vancomycin and Zosyn as improvement in swelling noted. We will hold on surgery consult as patient does not have any acute abscesses that that can be drained 11/14 Patient is doing well today. Swelling has improved since yesterday. Surgery was consulted for possible incision and drainage. Potassium is high 5.3. Creatinine improved from yesterday from 1.9-1.6. Wound culture is still pending Objective - Vital Signs Vital signs: Vital Signs Temp 97.7 F 11/14/17 14:40 Pulse 87 11/14/17 14:40 Resp 20 11/14/17 14:40 BP 175/92 11/14/17 14:40 Pulse Ox 95 11/14/17 14:40 Intake & Output 11/13/17 11/14/17 11/14/17 18:59 06:59 18:59 Intake Total 850 550 Output Total 2 Balance 850 -2 550 Intake: Intake, IV Titration 850 550 Amount Piperacillin-Tazobactam 3 50 50 .375 gm In Dextrose/Water 1 50ml.bag @ 12.5 mls/hr IVPB Q8HR [facility] Rx#: [id number] Sodium Chloride 0.9% 1, 800 000 ml @ 100 mls/hr IV . Q10H [facility] Rx#:[id number] Vancomycin 1,750 mg In 500 Sodium Chloride 0.9% 500 ml @ 166.667 mls/hr IVPB Q24HR [facility] Rx#:[id number] Output: Urine 2 Other: Voiding Method Toilet # Voids 1 - Exam - Constitutional General appearance: cooperative, no acute distress, obese - EENT Eyes: anicteric sclerae, PERRLA, normal appearance ENT: hearing grossly normal - Neck Neck: no lymphadenopathy, normal ROM, no other, no rigidity, no stridor, no thyromegaly - Respiratory Respiratory: bilateral: CTA, negative: diminished, dullness, rales, rhonchi - Cardiovascular Rhythm: regular Heart sounds: normal: S1, S2 Abnormal Heart Sounds: no systolic murmur, no diastolic murmur, no rub, no S3 Gallop, no S4 Gallop, no click, no other - Gastrointestinal General gastrointestinal: normal bowel sounds, soft - Integumentary Integumentary: Circumferential inflammation with no overlying warmth seen around the ankle with 1+ lower extremity edema. Also prominent skin lesion seen on the medial side of the thigh with 1 cm ulcer nondraining. improved since yesterday - Neurologic Neurologic: CNII-XII intact - Musculoskeletal Musculoskeletal: gait normal, strength equal bilaterally - Psychiatric Psychiatric: A&O x's 3, appropriate affect - Labs CBC & Chem 7: 11/13/17 05:31 11/14/17 08:29 Labs: Abnormal Lab Results - Last 24 Hours (Table) 11/14/17 Range/Units 08:29 Potassium 5.3 H (3.5-5.1) mmol/L Creatinine 1.61 H (0.66-1.25) mg/dL Glucose 139 H (74-99) mg/dL Microbiology - Last 24 Hours (Table) 11/12/17 13:15 Blood Culture - Preliminary Blood No Growth after 48 hours Assessment and Plan Plan: #1 acute cellulitis with lymphangitis failed outpatient treatment. CT leg suggestive of cellulitis ruled out necrotizing fasciitis. Continue with vancomycin pharmacy to dose with Zosyn. Infectious disease consulted for further recommendation as outpatient on discharge. Negative for DVT on the lower extremity ultrasoun. Surgery consult #2 hyperlipidemia continue atorvastatin 20 mg patient on simvastatin 40 mg daily #3 asthma continue Singulair 10 mg daily #4 acute kidney injury likely secondary to acute tubular necrosis from Bactrim. Creatinine improved since yesterday continue to monitor for continue IV fluids at 100 mL/h #5 GI prophylaxis with 20 mg of omeprazole #6 DVT prophylaxis with heparin every 12 #7 CODE STATUS full code
--- NOTE | 2017-11-14 22:47 | PN ---
PROGRESS NOTE DATE OF SERVICE: 11/14/2017. REASON FOR FOLLOWUP: Right mid thigh and leg cellulitis. INTERVAL HISTORY: The patient is afebrile. He is currently breathing comfortably. Denies significant chest pain. No abdominal pain or pain. Swelling and redness to the right mid thigh has slightly decreased. EXAMINATION: Blood pressure 175/92 with a pulse of 87, temp 97.7, he is 95% on room air. General description is a middle aged male up in the bed in no distress. Respiratory system, unlabored breathing clear to auscultation anteriorly. Heart, S1, S2. Regular rate. Right mid id thigh swelling and induration slightly decreased. No drainage. LABS: BUN of 17, creatinine 1.61. Blood culture negative so far. DIAGNOSTIC IMPRESSION AND PLAN: Patient with right medial thigh cellulitis, question of possible abscess. General surgery has seen the patient and watching closely for now. Continue the antibiotics for now while waiting for . Continue supportive care. MMODL / IJN: [id number] /
[2017-11-15] MEDS: SODIUM CHLORIDE 0.9% 1,000 ML IV SCH ×2 (01:07→11:00)
[2017-11-15] MEDS: MONTELUKAST 10 MG TAB PO SCH (07:46)
[2017-11-15] MEDS: HEPARIN SODIUM,PORCINE 5,000 UNIT/ML 1 ML VIAL SQ SCH ×2 (07:46→21:33)
[2017-11-15] MEDS: PANTOPRAZOLE 40 MG TABLET PO SCH (07:46)
[2017-11-15] MEDS: ATORVASTATIN 20 MG TAB PO SCH (07:46)
[2017-11-15] MEDS: VANCOMYCIN 1,750 MG in SODIUM CHLORIDE 0.9% 500 ML IVPB SCH (07:49)
[2017-11-15 08:59] LABS: Calcium 9.1 mg/dL (8.4-10.2)
[2017-11-15] MEDS: PIPERACILLIN-TAZOBACTAM 3.375 GM in DEXTROSE/WATER 1 50ML.BAG IVPB SCH (11:00)
[2017-11-15] MEDS: ceFAZolin IN SWFI 2 GM/20 ML SYRINGE IVP SCH ×2 (15:26→23:41)
--- NOTE | 2017-11-15 18:24 | P.PN ---
Subjective Progress Note Date: 11/15/17 Patient seen and examined at bedside. No acute changes overnight. Comfortable with at bedside. Objective - Vital Signs Vital signs: Vital Signs Temp 97.1 F L 11/15/17 14:44 Pulse 84 11/15/17 14:44 Resp 18 11/15/17 14:44 BP 154/89 11/15/17 14:44 Pulse Ox 95 11/15/17 14:44 Intake & Output 11/14/17 11/15/17 11/15/17 18:59 06:59 18:59 Intake Total 550 500 240 Balance 550 500 240 Intake: Intake, IV Titration 550 Amount Piperacillin-Tazobactam 3 50 .375 gm In Dextrose/Water 1 50ml.bag @ 12.5 mls/hr IVPB Q8HR [facility] Rx#: [id number] Vancomycin 1,750 mg In 500 Sodium Chloride 0.9% 500 ml @ 166.667 mls/hr IVPB Q24HR [facility] Rx#:[id number] Oral 500 240 Other: # Voids 1 3 - Constitutional General appearance: Present: cooperative, no acute distress - Neck Neck: Present: normal ROM - Respiratory Details: No difficulty with respiration - Gastrointestinal Gastrointestinal Comment(s): Soft, nontender, nondistended, no rebound, no guarding - Integumentary Integumentary Comment(s): Right lower extremity cellulitis area with improved erythema, continued unchanged induration, no palpable fluctuance - Psychiatric Psychiatric: Present: A&O x's 3 - Labs CBC & Chem 7: 11/13/17 05:31 11/15/17 08:03 Labs: Abnormal Lab Results - Last 24 Hours (Table) 11/15/17 Range/Units 08:03 Creatinine 1.48 H (0.66-1.25) mg/dL Microbiology - Last 24 Hours (Table) 11/12/17 13:15 Blood Culture - Preliminary Blood No Growth after 72 hours 11/12/17 17:50 Anaerobic Culture - Preliminary Leg - Right 11/12/17 17:50 Gram Stain - Final Leg - Right Wound Culture - Final Assessment and Plan (1) Cellulitis of right thigh Narrative/Plan: - Continue antibiotics per ID recommendations - I discussed the case with both the primary team and infectious disease. The plan for now is change of antibiotics and likely discharge with home antibiotics. There is no palpable area of fluctuance and therefore no reason for drainage. I did discuss the case with the patient and it there are any changes to the indurated area in which fluctuance he comes visible, the plan will be for the patient to present himself to the surgical office for incision and drainage in the office. The patient is agreeable to this plan. Current Visit: Yes Status: Acute Code(s): L03.115 - CELLULITIS OF RIGHT LOWER LIMB SNOMED Code(s): 82673190
--- NOTE | 2017-11-16 00:06 | PN ---
PROGRESS NOTE DATE OF SERVICE: 11/15/2017. REASON FOR FOLLOW UP: With right medial thigh abscess cellulitis and leg cellulitis. INTERVAL HISTORY: The patient is afebrile. He is breathing comfortably. Denies any chest pain or shortness of breath, cough. No abdominal pain and no diarrhea. EXAMINATION: Blood pressure is 146/85, pulse of 79, temperature of 98. General description is a middle-aged male lying in bed in no distress. Respiratory system: Unlabored breathing. Clear to auscultation anteriorly. Heart S1, S2. Regular rate and rhythm. Abdomen is soft. No tenderness. Right medial thigh swelling, and redness has improved. No fluctuation. LABS: BUN of 15, creatinine 1.48. The patient did have some superficial cultures currently negative. Blood culture remains to be negative. DIAGNOSTIC IMPRESSION AND PLAN: Patient with right medial thigh cellulitis, also with right leg cellulitis with concern for possible abscess. No fluctuation has been noticed. The patient did have some superficial cultures which has been negative. Antibiotic will be adjusted to cefazolin 2 g q.8h. if the patient continues to improve, plan to finish therapy with oral antibiotic therapy surgical at this point. Continue supportive care. MMODL / IJN: [id number] /
[2017-11-16] MEDS ORDERED: VANCOMYCIN TROUGH DUE 1 EACH MISC MISCELLANE ONE (08:00)
[2017-11-16] MEDS: PANTOPRAZOLE 40 MG TABLET PO SCH (08:06)
[2017-11-16] MEDS: ATORVASTATIN 20 MG TAB PO SCH (08:06)
[2017-11-16] MEDS: MONTELUKAST 10 MG TAB PO SCH (08:06)
[2017-11-16] MEDS: HEPARIN SODIUM,PORCINE 5,000 UNIT/ML 1 ML VIAL SQ SCH (08:13)
[2017-11-16 08:31] LABS: Calcium 9.3 mg/dL (8.4-10.2); Potassium 4.7 mmol/L (3.5-5.1)
[2017-11-16] MEDS: ceFAZolin IN SWFI 2 GM/20 ML SYRINGE IVP SCH (09:20)
[2017-11-16 10:55] VITALS: BP 157/77; PULSE 74; RESP 16; TEMP 98
--- NOTE | 2017-11-16 12:06 | CDI ---
Last Revision, April 2017 Documentation Clarification Form Date: 11/16/17 From: Shantell Pepe RN Admit Date: 11/12/2017 4:36:00 PM Patient Name: Jeremías Bryant Visit Number: [id number] ATTENTION: The Clinical Documentation Specialists (CDI) and [facility] Coding Staff appreciate your assistance in clarifying documentation. Please respond to the clarification below the line at the bottom and electronically sign. The CDI & [facility] Coding staff will review the response and follow-up if needed. Please note: Queries are made part of the Legal Health Record. If you have any questions, please contact the author of this message via ITS. Dr. Soraya Tomas, Acute Kidney injury likely secondary to acute tubular necrosis from Bactrim is documented in the PN 11/14 and H&P 11/13. Patient presented with acute cellulitis with lymphangitis failed outpatient treatment with Keflex and Bactrim status post ED visit 2 days prior to admission. History Risk factors/Other underlying illness:asthma, hyperlipidemia, HTN, GERD Clinical Indicators: JAYNA likely secondary to ATN Labs: on admission,RBC 4.28 Patient presents with 11/12; BUN 24 to current of 15 , CR 2.30 to 1.20 and GFR of 29 to 64 K 11/12 of 4.7 increased to 5.6 11/13 to current 4.7 Treatment: Consults: ID and Surgery, IV fluid bolus x 1 and 100cc/hr. Vancomycin pharmacy dosed Monitor kidney function and labs noted by ID. In your professional opinion, can you please clarify the etiology of the JAYNA, if known? Acute Renal Failure with Acute Tubular Necrosis Acute Renal Failure with other specified pathological cause, please specify Acute Renal Failure with other cause, please specify Unable to determine Other, please specify Please continue to document in your progress notes, under the line below and/or in the discharge summary in order to capture severity of illness and risk of mortality. Include clinical findings that support your diagnosis. MTDD
--- NOTE | 2017-11-16 12:46 | PN ---
PROGRESS NOTE DATE OF SERVICE: 11/16/2017 REASON FOR FOLLOWUP: Right medial thigh and leg cellulitis. INTERVAL HISTORY: The patient is afebrile, he is breathing comfortably. Overall, pain, swelling in right mid thigh has improved, slight area of induration. No open area, no drainage. Denies having any chest pain, shortness of breath, cough and did have overall improvement compared to yesterday when he was started on cefazolin. PHYSICAL EXAMINATION: Blood pressure 157/77 with a pulse of 74, temperature of 98, he is 93% on room air. General description is a middle aged male, up in the room in no distress. RESPIRATORY SYSTEM: Unlabored breathing, clear to auscultation anteriorly. HEART: S1, S2. Regular rate and rhythm. ABDOMEN: Soft, no tenderness. LABS: BUN of 15, creatinine is 1.20. Culture has been negative. DIAGNOSTIC IMPRESSION AND PLAN: Patient with right medial thigh cellulitis, concern for possible abscess. No drainable fluid per the surgery. He was switched to cefazolin and have shown continued improvement. At this time, will switch him over to Keflex 500 mg p.o. q.6 hours for 10 days with close outpatient followup. Continue supportive care. MMODL / IJN: [id number] /
--- NOTE | 2017-11-16 15:39 | P.PN ---
Subjective Progress Note Date: 11/15/17 This is a 62 years old male patient of Dr. Torres with past medical history of asthma, hyperlipidemia, hypertension, recent perirectal abscess treated by Dr. Wilhelm currently getting visiting nurses at home with last packing of the rectum done last Wednesday with no further plans of packing due to good recovery. Patient developed right lower extremity swelling and redness 2 days ago and was seen in the ER where he was discharged with Keflex and Bactrim. Since the swelling around the thigh region continued to worsen despite the antibiotic patient decided to come to the ER on suggestion of the visiting nurses. Labs done in the ER suggestive of WBC 9.5, hemoglobin 14.1, creatinine 2.3, BUN 24, glucose 112 lactic acid 1.1 normal LFTs, normal C- reactive protein. Ultrasound lower extremity was negative for DVT CT lower extremity gratis distally along the leg concerning for cellulitis but no soft tissue gas or edema was seen to suggest deeper infection. Patient was found to have a 2.6 and 1.1 is regular density in the medial thigh subcutaneous fat which could suggest a possible focal phlegmon though negative for any abscess patient also has a couple punctate 2 mm densities anterior medial mid leg which could represent tiny phlebolith or retained foreign body material mildly enlarged lymph node was also seen likely reactive. Infectious disease consult placed patient will be continued on vancomycin and Zosyn as improvement in swelling noted. We will hold on surgery consult as patient does not have any acute abscesses that that can be drained 11/14 Patient is doing well today. Swelling has improved since yesterday. Surgery was consulted for possible incision and drainage. Potassium is high 5.3. Creatinine improved from yesterday from 1.9-1.6. Wound culture is still pending 11/15: Patient continued to have some induration that is unchanged and an inflammatory change around the base. Dr. Resendez is following. Dr. Willams and wanted and debridement done and patient is to follow-up as outpatient. Continue IV antibiotics. Objective - Vital Signs Vital signs: Vital Signs Temp 97.1 F L 11/15/17 14:44 Pulse 84 11/15/17 14:44 Resp 18 11/15/17 14:44 BP 154/89 11/15/17 14:44 Pulse Ox 95 11/15/17 14:44 Intake & Output 11/14/17 11/15/17 11/15/17 18:59 06:59 18:59 Intake Total 550 500 240 Balance 550 500 240 Intake: Intake, IV Titration 550 Amount Piperacillin-Tazobactam 3 50 .375 gm In Dextrose/Water 1 50ml.bag @ 12.5 mls/hr IVPB Q8HR [facility] Rx#: [id number] Vancomycin 1,750 mg In 500 Sodium Chloride 0.9% 500 ml @ 166.667 mls/hr IVPB Q24HR [facility] Rx#:[id number] Oral 500 240 Other: # Voids 1 3 - Exam - Constitutional General appearance: cooperative, no acute distress, obese - EENT Eyes: anicteric sclerae, PERRLA, normal appearance ENT: hearing grossly normal - Neck Neck: no lymphadenopathy, normal ROM, no other, no rigidity, no stridor, no thyromegaly - Respiratory Respiratory: bilateral: CTA, negative: diminished, dullness, rales, rhonchi - Cardiovascular Rhythm: regular Heart sounds: normal: S1, S2 Abnormal Heart Sounds: no systolic murmur, no diastolic murmur, no rub, no S3 Gallop, no S4 Gallop, no click, no other - Gastrointestinal General gastrointestinal: normal bowel sounds, soft - Integumentary Integumentary: Circumferential inflammation with no overlying warmth seen around the ankle with 1+ lower extremity edema. Also prominent skin lesion seen on the medial side of the thigh with 1 cm ulcer nondraining. improved since yesterday - Neurologic Neurologic: CNII-XII intact - Musculoskeletal Musculoskeletal: gait normal, strength equal bilaterally - Psychiatric Psychiatric: A&O x's 3, appropriate affect - Labs CBC & Chem 7: 11/13/17 05:31 11/16/17 08:06 Labs: Abnormal Lab Results - Last 24 Hours (Table) 11/15/17 Range/Units 08:03 Creatinine 1.48 H (0.66-1.25) mg/dL Microbiology - Last 24 Hours (Table) 11/12/17 17:50 Anaerobic Culture - Preliminary Leg - Right 11/12/17 17:50 Gram Stain - Final Leg - Right Wound Culture - Final 11/12/17 13:15 Blood Culture - Preliminary Blood No Growth after 48 hours Assessment and Plan Plan: #1 acute cellulitis with lymphangitis failed outpatient treatment. CT leg suggestive of cellulitis ruled out necrotizing fasciitis. Continue with vancomycin pharmacy to dose with Zosyn. Infectious disease consulted for further recommendation as outpatient on discharge. Negative for DVT on the lower extremity ultrasoun. Surgery consult #2 hyperlipidemia continue atorvastatin 20 mg patient on simvastatin 40 mg daily #3 asthma continue Singulair 10 mg daily #4 acute kidney injury likely secondary to acute tubular necrosis from Bactrim. Creatinine improved since yesterday continue to monitor for continue IV fluids at 100 mL/h #5 GI prophylaxis with 20 mg of omeprazole #6 DVT prophylaxis with heparin every 12 #7 CODE STATUS full code Discharge plan: Return home most likely tomorrow. Impression and plan of care have been directed as dictated by the signing physician. Charlene Laboy nurse practitioner acting as scribe for signing physician.
--- NOTE | 2017-11-16 15:43 | P.DS ---
Providers Date of admission: 11/12/17 16:36 Expected date of discharge: 11/16/17 Attending physician: Soraya Tomas MD Consults: 11/13/17 12:45 Consult Physician Routine Consulting Provider: Medina Willams Consult Reason/Comments: cellultis Do you want consulting provider notified?: Yes 11/13/17 16:35 Consult Physician Urgent Consulting Provider: Rashel Resendez Consult Reason/Comments: right medial thigh abscess for drainage and cultures Do you want consulting provider notified?: Yes Primary care physician: Saeed Torres [facility] Course: This is a 62 years old male patient of Dr. Torres with past medical history of asthma, hyperlipidemia, hypertension, recent perirectal abscess treated by Dr. Wilhelm currently getting visiting nurses at home with last packing of the rectum done last Wednesday with no further plans of packing due to good recovery. Patient developed right lower extremity swelling and redness 2 days ago and was seen in the ER where he was discharged with Keflex and Bactrim. Since the swelling around the thigh region continued to worsen despite the antibiotic patient decided to come to the ER on suggestion of the visiting nurses. Labs done in the ER suggestive of WBC 9.5, hemoglobin 14.1, creatinine 2.3, BUN 24, glucose 112 lactic acid 1.1 normal LFTs, normal C- reactive protein. Ultrasound lower extremity was negative for DVT CT lower extremity gratis distally along the leg concerning for cellulitis but no soft tissue gas or edema was seen to suggest deeper infection. Patient was found to have a 2.6 and 1.1 is regular density in the medial thigh subcutaneous fat which could suggest a possible focal phlegmon though negative for any abscess patient also has a couple punctate 2 mm densities anterior medial mid leg which could represent tiny phlebolith or retained foreign body material mildly enlarged lymph node was also seen likely reactive. Infectious disease consult placed patient will be continued on vancomycin and Zosyn as improvement in swelling noted. We will hold on surgery consult as patient does not have any acute abscesses that that can be drained 11/14 Patient is doing well today. Swelling has improved since yesterday. Surgery was consulted for possible incision and drainage. Potassium is high 5.3. Creatinine improved from yesterday from 1.9-1.6. Wound culture is still pending 11/15: Patient continued to have some induration that is unchanged and an inflammatory change around the base. Dr. Resendez is following. Dr. Willams and wanted and debridement done and patient is to follow-up as outpatient. Continue IV antibiotics. 11/16: Dr. Resendez and Dr. Willams have cleared the patient for discharge. Antibiotics are in the form of Keflex per Dr. Flaherty 8. Patient will be discharged home today in stable condition. Regarding patient's blood pressure, he will be resumed on losartan at a lower dose of 50 mg daily. Discharge diagnoses: #1 acute cellulitis right thigh with lymphangitis failed outpatient treatment. #2 hyperlipidemia #3 asthma mild intermittent #4 acute kidney injury secondary to acute tubular necrosis from Bactrim. Discharge plan: Return home. Impression and plan of care have been directed as dictated by the signing physician. Charlene Laboy nurse practitioner acting as scribe for signing physician. Patient Condition at Discharge: Good Plan - Discharge Summary New Discharge Prescriptions: New Cephalexin [Keflex] 500 mg PO Q8HR #30 cap Continue Simvastatin [Zocor] 40 mg PO DAILY Montelukast [Singulair] 10 mg PO DAILY Albuterol Inhaler [Ventolin Hfa Inhaler] 1 - 2 puff INHALATION RT-Q6H PRN PRN Reason: Shortness Of Breath Omeprazole 20 mg PO DAILY Changed Losartan Potassium 50 mg PO DAILY #0 Discontinued Cephalexin [Keflex] 500 mg PO Q6HR #40 cap Sulfamethox-Tmp 800-160Mg [Bactrim DS 800-160 mg] 2 tab PO Q12HR #40 tab Discharge Medication List Albuterol Inhaler [Ventolin Hfa Inhaler] 1 - 2 puff INHALATION RT-Q6H PRN [History] Montelukast [Singulair] 10 mg PO DAILY 11/12/17 [History] Omeprazole 20 mg PO DAILY 11/12/17 [History] Simvastatin [Zocor] 40 mg PO DAILY 11/12/17 [History] Cephalexin [Keflex] 500 mg PO Q8HR #30 cap 11/16/17 [Rx] Losartan Potassium 50 mg PO DAILY #0 11/16/17 [Rx] Follow up Appointment(s)/Referral(s): [facility], [NON-STAFF] - As Needed Saeed Torres MD [Primary Care Provider] - 11/19/17 9:30 am Rashel Resendez DO [Doctor of Osteopathic Medicine] - As Needed (appointment already made by ) Medina Willams MD [STAFF PHYSICIAN] - 11/25/17 11:45 am Ambulatory/Diagnostic Orders: Basic Metabolic Panel [LAB.AMB] Location: None Selected Complete Blood Count w/diff [LAB.AMB] Location: None Selected Patient Instructions/Handouts: Abscess (GEN), Acute Wounds (DC) Activity/Diet/Wound Care/Special Instructions: Low fat diet. Activity as tolerated. Discharge Disposition: HOME WITH HOME HEALTH SERVICES
== END 2017-11-16 13:38 | disposition home health service (06) | DRG 602 ==
LOC: EC 12:18 → 4MS4W 16:36
PROVIDERS: ADMIT Internal Medicine; ATTEND Internal Medicine
DX: L03.115 Cellulitis of right lower limb (principal); N17.0 Acute kidney failure with tubular necrosis; I89.1 Lymphangitis; E78.5 Hyperlipidemia, unspecified; I10 Essential (primary) hypertension; J45.20 Mild intermittent asthma, uncomplicated; K21.9 Gastro-esophageal reflux disease without esophagitis; T37.0X5A Adverse effect of sulfonamides, initial encounter; E66.9 Obesity, unspecified; Z68.33 Body mass index [BMI] 33.0-33.9, adult; Z79.899 Other long term (current) drug therapy; Y92.009 Unspecified place in unspecified non-institutional (private) residence as the place of occurrence of the external cause
CPT/HCPCS: 36415; 80048; 80053; 80202; 83605; 85025; 85652; 86140; 87040; 87070; 87075; 87205; 96361; 96365; 96366; 99285

== ENCOUNTER → 2019-10-24 | Outpatient (CLI) | payer MEDICARE, BC ==
[2019-10-24 12:05] LABS: Basophils % (A) 1 %; Eosinophils # (A) 0.4 k/uL (0-0.7); Eosinophils % (A) 7 %; HCT 47.6 % (39.0-53.0); Lymphocytes # (A) 1.1 k/uL (1.0-4.8); Lymphocytes % (A) 18 %; MCH 32.4 pg (25.0-35.0); MCHC 33.5 g/dL (31.0-37.0); MCV 96.7 fL (80.0-100.0); Mean Platelet Volume 7.6; Monocytes # (A) 0.4 k/uL (0-1.0); Monocytes % (A) 7 %; Neutrophils # (A) 3.9 k/uL (1.3-7.7); Neutrophils % (A) 65 %; Platelet Count 228 k/uL (150-450); RBC 4.92 m/uL (4.30-5.90); RDW 12.4 % (11.5-15.5); WBC 5.9 k/uL (3.8-10.6)
[2019-10-24 12:12] LABS: Total Eosinophil Count 413 #EOS/uL (150-300)
[2019-10-24 18:05] LABS: Dermato. farinae IgE <0.10 kU/L
[2019-10-24 18:06] LABS: Cat Epith & Dander IgE <0.10 kU/L; Cockroach IgE <0.10 kU/L; Dog Dander IgE <0.10 kU/L
[2019-10-24 18:07] LABS: Alternaria alternata IgE <0.10 kU/L; Aspergillus fumagatus IgE <0.10 kU/L; Cladosporian herbarum IgE <0.10 kU/L
[2019-10-24 18:08] LABS: Birch IgE <0.10 kU/L; Elm IgE <0.10 kU/L; Maple (Box Elder) IgE <0.10 kU/L; Oak IgE <0.10 kU/L
[2019-10-24 18:09] LABS: Ragweed,Common IgE <0.10 kU/L; Red Top (Bentgrass) IgE <0.10 kU/L
== END | disposition home or self-care (01) ==
LOC: LABWHC1 10:39
PROVIDERS: ATTEND Internal Medicine
DX: J45.30 Mild persistent asthma, uncomplicated (principal)
CPT/HCPCS: 36415; 82785; 85008; 85025; 86003

== ENCOUNTER → 2020-05-21 | Outpatient (CLI) | payer MEDICARE, BC ==
--- NOTE | 2020-05-21 16:57 | PN ---
PROGRESS NOTE Jeremías is coming in for a compliancy check. The patient was diagnosed having severe SAN[place] with an AHI of 62, and currently this patient is on a CPAP pressure of 11 cm of water. On today's evaluation, he is doing extremely well. He reports marked improvement in his sleep quality in general. He is waking up much more refreshed and alert. Snoring has completely subsided. He is using an Eson nose mask and he is looking for alternatives. Based on 30-day compliancy, the patient has been averaging around 8.6 hours of CPAP use per night and his leak is on the order of 12 L/minute, and his AHI is down to 1.5. No complaints. BP is still elevated, and I cautioned him. I asked him to follow up with his primary care physician in that regard. Weight is at 282. REVIEW OF SYSTEMS: Fourteen-point review of systems was done. Clinically improved. The patient's Keyes score is down to 3. PHYSICAL EXAMINATION: BP is 191/81, pulse 100, respirations 16. Temperature is 98.3, saturation is 95% on room air. Weight is 282. GENERAL APPEARANCE: Calm, comfortable. HEAD: Atraumatic, normocephalic. NECK: Supple. Mallampati class IV. There is no goiter or neck masses. LUNGS: Clear to auscultation. HEART: Heart sounds are regular rate and rhythm. Normal S1, S2. No S3, S4. No murmurs. ABDOMEN: Soft, nontender. No organomegaly. EXTREMITIES: No edema. No cyanosis or clubbing. IMPRESSION: 1. Severe obstructive sleep apnea with an AHI of 62, currently undergoing CPAP treatment. 2. Chronic hypersomnia, improving. The patient's Keyes score is down considerably, and the patient is responding to CPAP therapy. 3. Obesity. 4. Hypertension. His blood pressure seems to be poorly controlled. This needs to be followed up very closely. 5. Hyperlipidemia. 6. Allergic rhinitis. 7. Mild intermittent bronchial asthma. PLAN: 1. Continue CPAP therapy at the same level of pressure, which is 11 cm of water. 2. Offer the patient an AirFit N20 large-sized nose mask as an alternative for the Eson mask. 3. Encourage weight loss. 4. Follow up with the primary care physician regarding blood pressure control. 5. Treatment with CPAP is successful for now. No need for further adjustment. Change the humidity to manual. Let us set it at 4, and change the temperature of the tubing at 74 degrees Fahrenheit. The patient will see me back in a year's time. ALLAN / IJN: [id number] /
== END | disposition home or self-care (01) ==
LOC: SLEEP 16:03
PROVIDERS: ATTEND Internal Medicine Critical Care Medicine
DX: G47.33 Obstructive sleep apnea (adult) (pediatric) (principal); I10 Essential (primary) hypertension; E66.9 Obesity, unspecified; E78.5 Hyperlipidemia, unspecified; J45.909 Unspecified asthma, uncomplicated; Z99.89 Dependence on other enabling machines and devices

== ENCOUNTER → 2021-10-07 | Outpatient (CLI) | payer MEDICARE, BC ==
--- NOTE | 2021-10-07 14:24 | P.PN ---
Subjective Progress Note Date: 10/07/21 66-year-old male patient with known history of severe obstructive sleep apnea with an AHI of 62 coming in for an annual check. Since his last evaluation, the patient has lost around 15 pounds. He used to weigh around 282 and currently is down to 267. He remains on a CPAP machine which is a ResMed 11 and currently is pressure setting is at 11 cm of water. The patient's been averaging around 7.3 hours of CPAP use per night. He is using the machine every night and he uses of the machine for more than 4 hours is above 90%. Leak is in order of 29 L per minute and his AHI while on treatment is down to 1.2 and the patient is using a nasal mask, Airfit N20 large size nasal mask. He is humidity level is at 4 and he opted to have some humidity change as he was getting some condensation and his heated tubing/climate line. He is waking up refreshed and alert during the day. No major hypersomnia and sleepiness during the day. No tiredness. No fatigue. No following sleep while driving his car. No morning headaches. His treatment is been extremely successful. His blood sugar control is also improved as the patient has been started on insulin, long-acting, glargine, at a dose of 14 units a day. The patient is also on Janumet one tablet daily. The rest of the medications are unchanged. No cardiac events. No arrhythmias. No congestion heart failure. No stroke. No other significant events overnight. His supplies are going to be refilled. His current [place] score is down to 4. Objective - Exam The BP is 160/77, pulse is 84, respirations 16, temperature is 97.1, saturation 97% on room air oxygen, weight is 267, BMI 36.2, [place] score is at 4. The patient appeared well nourished and normally developed. Vital signs as documented. Head exam is unremarkable. No scleral icterus or corneal arcus noted. Neck is without jugular venous distension, thyromegaly, or carotid bruits. Carotid upstrokes are brisk bilaterally. Lungs are clear to auscultation and percussion. Cardiac exam reveals the PMI to be normally sized and situated. Rhythm is regular. First and second heart sounds normal. No murmurs, rubs or gallops. Abdominal exam reveals normal bowel sounds, no masses, no organomegaly and no aortic enlargement. Extremities are nonedematous and both femoral and pedal pulses are normal.Examination of the skin revealed no evidence of significant rashes, suspicious appearing nevi or other concerning lesions.N eurologically, the patient is awake and alert and the patient does not have any focal neurological deficit. Cranial nerves are essentially intact. Assessment and Plan Plan: Severe symptomatic obstructive sleep apnea, AHI of 62, adequately treated with CPAP at a pressure of 11 cm of water and the patient's CPAP treatment is been essentially successful for now. The patient has no issues. The patient continues to use his machine and is very compliant. Obesity with interval 15 pounds weight loss current weight is down to 267 Hypersomnia, improved, [place] score is down to 4 Diabetes mellitus type 2, insulin-dependent and patient's blood sugars under better control Severe persistent bronchial asthma, maintained on a combination of respiratory medications including Symbicort and the patient is currently on Fasenra every 2 months. The patient is also taking Singulair. Asthma control is improved and the patient is not requiring any systemic steroids Hyperlipidemia BPH Hypertension Plan Continue CPAP therapy and same level of pressure and the patient will be kept a pressure of 11 cm of water. Encourage further weight loss Refill of the supplies Dropped a humidification to level II Refill of the supplies Maintaining his sleep hygiene measures Comorbid conditions are stable We'll follow-up I will see me back in a year's time
== END ==
LOC: SLEEP 13:58
PROVIDERS: ATTEND Internal Medicine Critical Care Medicine
DX: G47.33 Obstructive sleep apnea (adult) (pediatric) (principal); E66.9 Obesity, unspecified; E11.9 Type 2 diabetes mellitus without complications; J45.50 Severe persistent asthma, uncomplicated; E78.5 Hyperlipidemia, unspecified; N40.0 Benign prostatic hyperplasia without lower urinary tract symptoms; I10 Essential (primary) hypertension; Z68.36 Body mass index [BMI] 36.0-36.9, adult

== ENCOUNTER 2024-11-03 13:49 | Emergency (ER) | payer MEDICARE, BC ==
[2024-11-03 14:31] VITALS: RESP 16; TEMP 98.5
--- NOTE | 2024-11-03 14:49 | ED ---
General Adult HPI - General Chief complaint: Nausea/Vomiting/Diarrhea Stated complaint: Vomiting Time Seen by Provider: 11/03/24 14:33 Source: patient, RN notes reviewed Mode of arrival: ambulatory Limitations: no limitations - History of Present Illness Initial comments: 69-year-old male presents to the emergency department for evaluation of nausea and lightheadedness. Patient notes that this started around 430 this morning. He had 2 episodes of vomiting this morning as well. He does report a similar episode about a week ago. He denies any abdominal or chest pain. Denies any shortness of breath. Denies any recent fever or chills. He does report some constipation. - Related Data Home Medications Medication Instructions Recorded Confirmed Albuterol Inhaler [Ventolin Hfa 1 - 2 puff INHALATION RT-Q6H PRN 11/12/17 11/12/17 Inhaler] Montelukast [Singulair] 10 mg PO DAILY 11/12/17 11/12/17 Omeprazole 20 mg PO DAILY 11/12/17 11/12/17 Simvastatin [Zocor] 40 mg PO DAILY 11/12/17 11/12/17 Previous Rx's Medication Instructions Recorded Cephalexin [Keflex] 500 mg PO Q8HR #30 cap 11/16/17 Losartan Potassium 50 mg PO DAILY #0 11/16/17 Allergies Allergy/AdvReac Type Severity Reaction Status Date / Time No Known Allergies Allergy Verified 11/12/17 12:32 Review of Systems ROS Statement: Those systems with pertinent positive or pertinent negative responses have been documented in the HPI. ROS Other: All systems not noted in ROS Statement are negative. Past Medical History Past Medical History: Asthma, Diabetes Mellitus, GERD/Reflux, Hyperlipidemia, Hypertension History of Any Multi-Drug Resistant Organisms: None Reported Additional Past Surgical History / Comment(s): mario alberto rectal abscess sx Past Psychological History: No Psychological Hx Reported Past Alcohol Use History: Occasional Past Drug Use History: None Reported General Exam Limitations: no limitations General appearance: alert, in no apparent distress Head exam: Present: atraumatic, normocephalic, normal inspection Eye exam: Present: normal appearance, PERRL, EOMI. Absent: scleral icterus, conjunctival injection, periorbital swelling ENT exam: Present: normal exam, mucous membranes moist Respiratory exam: Present: normal lung sounds bilaterally. Absent: respiratory distress, wheezes, rales, rhonchi, stridor Cardiovascular Exam: Present: regular rate, normal rhythm, normal heart sounds. Absent: systolic murmur, diastolic murmur, rubs, gallop, clicks GI/Abdominal exam: Present: soft, normal bowel sounds. Absent: distended, tenderness, guarding, rebound, rigid Extremities exam: Present: normal inspection, full ROM, normal capillary refill. Absent: tenderness, pedal edema, joint swelling, calf tenderness Back exam: Present: normal inspection Neurological exam: Present: alert, oriented X3 Psychiatric exam: Present: normal affect, normal mood Skin exam: Present: warm, dry, intact, normal color. Absent: rash Course Vital Signs 11/03/24 11/03/24 14:28 17:17 Temperature 98.5 F Pulse Rate 84 88 Respiratory 16 16 Rate Blood Pressure 183/94 153/83 O2 Sat by Pulse 98 99 Oximetry Medical Decision Making - Medical Decision Making Was pt. sent in by a medical professional or institution (, PA, GROUP THERAPIST, urgent care, hospital, or retirement...) When possible be specific @ -[No] Did you speak to anyone other than the patient for history (EMS, parent, family, police, friend...)? What history was obtained from this source @ -[No] Did you review nursing and triage notes (agree or disagree)? Why? @ -[I reviewed and agree with nursing and triage notes] Were old charts reviewed (outside hosp., previous admission, EMS record, old EKG, old radiological studies, urgent care reports/EKG's, retirement records)? Report findings @ -[No old charts were reviewed] Differential Diagnosis (chest pain, altered mental status, abdominal pain women, abdominal pain men, vaginal bleeding, weakness, fever, dyspnea, syncope, headache, dizziness, GI bleed, back pain, seizure, CVA, palpatations, mental health, musculoskeletal)? @ -[not applicable] EKG interpreted by me (3pts min.). @ -[As above] X-rays interpreted by me (1pt min.). @ -[None done] CT interpreted by me (1pt min.). @ -[None done] U/S interpreted by me (1pt. min.). @ -[None done] What testing was considered but not performed or refused? (CT, X-rays, U/S, labs)? Why? @ -[None] What meds were considered but not given or refused? Why? @ -[None] Did you discuss the management of the patient with other professionals (professionals i.e. , PA, GROUP THERAPIST, lab, RT, psych nurse, neonatal social worker, pill packer, teacher, radio electronics officer, casework specialist)? Give summary @ -[No] Was smoking cessation discussed for >3mins.? @ -[No] Was critical care preformed (if so, how long)? @ -[No] Were there social determinants of health that impacted care today? How? (Homelessness, low income, unemployed, alcoholism, drug addiction, transportation, low edu. Level, literacy, decrease access to med. care, [facility], rehab)? @ -[No] Was there de-escalation of care discussed even if they declined (Discuss DNR or withdrawal of care, Hospice)? DNR status @ -[No] What co-morbidities impacted this encounter? (DM, HTN, Smoking, COPD, CAD, Cancer, CVA, ARF, Chemo, Hep., AIDS, mental health diagnosis, sleep apnea, morbid obesity)? @ -[None] Was patient admitted / discharged? Hospital course, mention meds given and route, prescriptions, significant lab abnormalities, going to OR and other pertinent info. @ -[hospital course] Undiagnosed new problem with uncertain prognosis? @ -[No] Drug Therapy requiring intensive monitoring for toxicity (Heparin, Nitro, Insulin, Cardizem)? @ -[No] Were any procedures done? @ -[No] Diagnosis/symptom? @ -[default] Acute, or Chronic, or Acute on Chronic? @ -[default] Uncomplicated (without systemic symptoms) or Complicated (systemic symptoms)? @ -[default] Side effects of treatment? @ -[No] Exacerbation, Progression, or Severe Exacerbation? @ -[No] Poses a threat to life or bodily function? How? (Chest pain, USA, MD, pneumonia, PE, COPD, DKA, ARF, appy, cholecystitis, CVA, Diverticulitis, Homicidal, Suicidal, threat to staff... and all critical care pts) @ -[No] - Lab Data Result diagrams: 11/03/24 14:47 11/03/24 14:47 Lab Results 11/03/24 11/03/2411/03/25 Range/Units 14:47 14:47 15:18 WBC 7.95 (4.50-10.00) 10*3/uL RBC 4.11 L (4.40-5.60) 10*6/uL Hgb 13.1 (13.0-17.0) g/dL Hct 37.5 L (39.6-50.0) % MCV 91.2 (80.0-97.0) fL MCH 31.9 (27.0-32.0) pg MCHC 34.9 (32.0-37.0) g/dL Plt Count 227 (140-440) 10*3/uL MPV 9.7 (9.5-12.2) fL Immature Gran % (Auto) 0.1 % Neutrophils % 81.5 % Lymphocytes % 8.6 % Monocytes % 9.7 % Eosinophils % 0.0 % Basophils % 0.1 % Immature Gran # 0.01 (0.00-0.04) 10*3/uL Neutrophils # 6.48 (1.80-7.70) 10*3/uL Lymphocytes # 0.68 L (0.90-5.00) 10*3/uL Monocytes # 0.77 (0.20-1.00) 10*3/uL Eosinophils # 0.00 L (0.04-0.35) 10*3/uL Basophils # 0.01 (0.00-0.10) 10*3/uL PT (10.0-12.5) sec INR (<1.2) APTT (22.0-30.0) sec Sodium 140 (137-145) mmol/L Potassium 4.4 (3.5-5.1) mmol/L Chloride 104 (98-107) mmol/L Carbon Dioxide 21 L (22-30) mmol/L Anion Gap 15 mmol/L BUN 35 H (9-20) mg/dL Creatinine 2.31 H (0.66-1.25) mg/dL Est GFR (CKD-EPI)AfAm 32 (>60 ml/min/1.73 sqM) Est GFR (CKD-EPI)NonAf 27 (>60 ml/min/1.73 sqM) Glucose 98 (74-99) mg/dL Calcium 9.4 (8.4-10.2) mg/dL Magnesium 1.7 (1.6-2.3) mg/dL Total Bilirubin 1.3 (0.2-1.3) mg/dL AST 22 (17-59) U/L ALT 14 (4-49) U/L Alkaline Phosphatase 62 (38-126) U/L Troponin I <0.012 (0.000-0.034) ng/mL Total Protein 7.1 (6.3-8.2) g/dL Albumin 4.2 (3.5-5.0) g/dL Lipase 198 (23-300) U/L Urine Color Urine Appearance (Clear) Urine pH (5.0-8.0) Ur Specific Counselor (1.001-1.035) Urine Protein (Negative) Urine Glucose (UA) (Negative) Urine Ketones (Negative) Urine Blood (Negative) Urine Nitrite (Negative) Urine Bilirubin (Negative) Urine Urobilinogen (<2.0) mg/dL Ur Leukocyte Esterase (Negative) Urine RBC (0-5) /hpf Urine WBC (0-5) /hpf Urine Bacteria (None) /hpf Urine Mucus (None) /hpf 11/03/24 11/03/24 Range/Units 15:18 15:45 WBC (4.50-10.00) 10*3/uL RBC (4.40-5.60) 10*6/uL Hgb (13.0-17.0) g/dL Hct (39.6-50.0) % MCV (80.0-97.0) fL MCH (27.0-32.0) pg MCHC (32.0-37.0) g/dL Plt Count (140-440) 10*3/uL MPV (9.5-12.2) fL Immature Gran % (Auto) % Neutrophils % % Lymphocytes % % Monocytes % % Eosinophils % % Basophils % % Immature Gran # (0.00-0.04) 10*3/uL Neutrophils # (1.80-7.70) 10*3/uL Lymphocytes # (0.90-5.00) 10*3/uL Monocytes # (0.20-1.00) 10*3/uL Eosinophils # (0.04-0.35) 10*3/uL Basophils # (0.00-0.10) 10*3/uL PT 11.7 (10.0-12.5) sec INR 1.1 (<1.2) APTT 23.8 (22.0-30.0) sec Sodium (137-145) mmol/L Potassium (3.5-5.1) mmol/L Chloride (98-107) mmol/L Carbon Dioxide (22-30) mmol/L Anion Gap mmol/L BUN (9-20) mg/dL Creatinine (0.66-1.25) mg/dL Est GFR (CKD-EPI)AfAm (>60 ml/min/1.73 sqM) Est GFR (CKD-EPI)NonAf (>60 ml/min/1.73 sqM) Glucose (74-99) mg/dL Calcium (8.4-10.2) mg/dL Magnesium (1.6-2.3) mg/dL Total Bilirubin (0.2-1.3) mg/dL AST (17-59) U/L ALT (4-49) U/L Alkaline Phosphatase (38-126) U/L Troponin I (0.000-0.034) ng/mL Total Protein (6.3-8.2) g/dL Albumin (3.5-5.0) g/dL Lipase (23-300) U/L Urine Color Colorless Urine Appearance Clear (Clear) Urine pH 5.5 (5.0-8.0) Ur Specific Counselor 1.021 (1.001-1.035) Urine Protein Trace H (Negative) Urine Glucose (UA) Negative (Negative) Urine Ketones Negative (Negative) Urine Blood Trace H (Negative) Urine Nitrite Negative (Negative) Urine Bilirubin Negative (Negative) Urine Urobilinogen <2.0 (<2.0) mg/dL Ur Leukocyte Esterase Negative (Negative) Urine RBC 4 (0-5) /hpf Urine WBC 2 (0-5) /hpf Urine Bacteria Rare H (None) /hpf Urine Mucus Rare H (None) /hpf Disposition Clinical Impression: JAYNA (acute kidney injury), Dehydration Disposition: HOME SELF-CARE Condition: Stable Instructions (If sedation given, give patient instructions): Acute Nausea and Vomiting (ED) Additional Instructions: Please follow up with Dr. Rowe. Return to the emergency department for new or worsening symptoms. Is patient prescribed a controlled substance at d/c from ED?: No Referrals: Ziggy Rowe MD [Primary Care Provider] - 1-2 days
[2024-11-03 15:12] LABS: Basophils # (A) 0.01 10*3/uL (0.00-0.10); Basophils % (A) 0.1 %; HCT 37.5 % (39.6-50.0); HGB 13.1 g/dL (13.0-17.0); Lymphocytes # (A) 0.68 10*3/uL (0.90-5.00); Lymphocytes % (A) 8.6 %; MCH 31.9 pg (27.0-32.0); MCHC 34.9 g/dL (32.0-37.0); MCV 91.2 fL (80.0-97.0); Mean Platelet Volume 9.7 fL (9.5-12.2); Monocytes # (A) 0.77 10*3/uL (0.20-1.00); Monocytes % (A) 9.7 %; Neutrophils # (A) 6.48 10*3/uL (1.80-7.70); Neutrophils % (A) 81.5 %; Platelet Count 227 10*3/uL (140-440); RBC 4.11 10*6/uL (4.40-5.60); RDW 12.6 % (11.5-14.5); WBC 7.95 10*3/uL (4.50-10.00)
[2024-11-03] MEDS: SODIUM CHLORIDE 0.9% 1,000 ML IV STA (15:27)
[2024-11-03] MEDS: ONDANSETRON 4 MG/2 ML VIAL IVP STA (15:27)
[2024-11-03 15:31] LABS: INR 1.1 (<1.2); Partial Thromboplastin Time 23.8 sec (22.0-30.0); Prothrombin Time 11.7 sec (10.0-12.5)
[2024-11-03 15:32] LABS: ALT 14 U/L (4-49); African American GFR (CKD) 32 (>60 ml/min/1.73 sqM); Albumin 4.2 g/dL (3.5-5.0); Anion Gap 15 mmol/L; Blood Urea Nitrogen 35 mg/dL (9-20); Calcium 9.4 mg/dL (8.4-10.2); Carbon Dioxide 21 mmol/L (22-30); Chloride 104 mmol/L (98-107); Glucose 98 mg/dL (74-99); Lipase 198 U/L (23-300); Non-African American GFR(CKD) 27 (>60 ml/min/1.73 sqM); Sodium 140 mmol/L (137-145); Total Bilirubin 1.3 mg/dL (0.2-1.3); Total Protein 7.1 g/dL (6.3-8.2)
[2024-11-03 15:41] LABS: Alkaline Phosphatase 62 U/L (38-126); Magnesium 1.7 mg/dL (1.6-2.3); Potassium 4.4 mmol/L (3.5-5.1)
[2024-11-03 15:42] LABS: AST 22 U/L (17-59)
--- NOTE | 2024-11-03 15:51 | XR ---
EXAMINATION TYPE: XR KUB DATE OF EXAM: 11/03/2024 3:47 PM COMPARISON: None. CLINICAL INDICATION: Male, 69 years old with history of constipation, vomiting, TECHNIQUE: XR KUB view(s) obtained. FINDINGS: Mild nonspecific bowel gas is present. No significant fecal retention evident. No mass effect is evid ent. Psoas margins are normal. No organomegaly is present. IMPRESSION: 1. Nonspecific abdomen [facility], , 11/03/2024 3:49 PM
[2024-11-03 17:32] LABS: Appearance,Urine Clear (Clear); Bacteria,Urine Rare /hpf; Bilirubin,Urine Negative (Negative); Blood,Urine Trace (Negative); Color,Urine Colorless; Glucose,Urine (UA) Negative (Negative); Ketones,Urine Negative (Negative); Leukocyte Esterase,Urine Negative (Negative); Mucus,Urine Rare /hpf; Nitrite,Urine Negative (Negative); PH, Urine 5.5 (5.0-8.0); Protein,Urine Trace (Negative); RBC,Urine 4 /hpf (0-5); Specific Gravity,Urine 1.021 (1.001-1.035); Urobilinogen,Urine <2.0 mg/dL (<2.0); WBC,Urine 2 /hpf (0-5)
[2024-11-03 18:34] VITALS: BP 155/89; PULSE 66
== END 2024-11-03 18:34 | disposition home or self-care (01) ==
LOC: EC 13:49
DX: N17.9 Acute kidney failure, unspecified (principal); E86.0 Dehydration
CPT/HCPCS: 51798; 36415; 93005; 80053; 83690; 83735; 84484; 85025; 85610; 85730; 81001; 74018; 99284; 96374; 96361 ×3; J2405

== ENCOUNTER → 2024-11-23 | Outpatient (CLI) | payer MEDICARE, BC ==
[2024-11-23 10:33] LABS: African American GFR (CKD) 34 (>60 ml/min/1.73 sqM); Anion Gap 12 mmol/L; Blood Urea Nitrogen 33 mg/dL (9-20); Calcium 9.1 mg/dL (8.4-10.2); Carbon Dioxide 22 mmol/L (22-30); Chloride 103 mmol/L (98-107); Glucose 97 mg/dL (74-99); Non-African American GFR(CKD) 29 (>60 ml/min/1.73 sqM); Potassium 5.0 mmol/L (3.5-5.1); Sodium 137 mmol/L (137-145)
== END | disposition home or self-care (01) ==
LOC: LABWHC1 09:25
PROVIDERS: ATTEND Internal Medicine Geriatric Medicine
DX: N17.9 Acute kidney failure, unspecified (principal)
CPT/HCPCS: 36415; 80048

== ENCOUNTER → 2024-11-23 | Outpatient (CLI) | payer MEDICARE, BC ==
--- NOTE | 2024-11-23 09:18 | US ---
EXAMINATION TYPE: US kidneys/renal and bladder DATE OF EXAM: 11/23/2024 COMPARISON: XR KUB CLINICAL INDICATION: Male, 69 years old with history of N17.9 ACUTE KIDNEY FAILURE; Acute kidney inju ry TECHNIQUE: Grayscale imaging of the bilateral kidneys and urinary bladder: FINDINGS: EXAM MEASUREMENTS: Right Kidney: 10.8 x 6.2 x 6.1 cm Left Kidney: 10.6 x 5.7 x 6.1 cm Right Kidney: No hydronephrosis or masses seen Left Kidney: Appearance of hydronephrosis Bladder: Appears anechoic Bilateral Jets seen: Yes IMPRESSION: Mild left-sided nephrosis. Correlate for obstructive uropathy. [facility], , 11/23/2024 9:15 AM
== END | disposition home or self-care (01) ==
LOC: RADUSWWP 08:30
PROVIDERS: ATTEND Internal Medicine Geriatric Medicine
DX: N17.9 Acute kidney failure, unspecified (principal); N04.9 Nephrotic syndrome with unspecified morphologic changes
CPT/HCPCS: 76770